=== PATIENT | male | born 1955 | race Caucasian/White ===

== ENCOUNTER 2021-01-17 18:31 | Outpatient (CLI) | payer OTHER | END 2021-01-17 18:32 | disposition home or self-care (01) | LOC: COV 18:31 | PROVIDERS: ATTEND Surgery | DX: Z01.812 Encounter for preprocedural laboratory examination (principal); K92.1 Melena; R11.0 Nausea; Z87.820 Personal history of traumatic brain injury; Z20.822 Contact with and (suspected) exposure to COVID-19 ==

== ENCOUNTER 2021-01-21 12:07 | Day surgery (SDC) | payer OTHER ==
[2021-01-21] MEDS ORDERED: LACTATED RINGERS 1,000 ML IV ONE ×2 (12:34→16:41)
[2021-01-21] MEDS ORDERED: LIDO GARGLE 30 ML BOTTLE ONE (13:14)
[2021-01-21] MEDS ORDERED: LIDOCAINE-MPF 2% 5 ML VIAL ONE (13:17)
[2021-01-21] MEDS ORDERED: PROPOFOL 200 MG/20 ML VIAL IVP ONE (13:17)
--- NOTE | 2021-01-21 13:21 | ANESTHESIA ---
Pre-Anesthesia VS, & Labs - Diagnosis hematochezia, hx TBI, nausea - Procedure EGD, Colonoscopy Vital Signs: Temp Pulse Resp BP Pulse Ox 36.1 C L 54 L 14 120/78 96 01/21/21 12:25 01/21/21 12:25 01/21/21 12:25 01/21/21 12:25 01/21/21 12:25 Height: 5 ft 11 in Weight (kg): 133 kg Body Mass Index: 40.8 BMI Classification: Morbidly Obese - NPO >8 hours - Lab Results Lab results reviewed: Yes Home Medications and Allergies Home Medications: Ambulatory Orders Acetaminophen [Tylenol] 650 mg PO Q6H PRN 01/15/21 Aspirin [Aspirin EC] 81 mg PO DAILY 01/15/21 Atenolol [Tenormin] 50 mg PO DAILY 01/15/21 Atorvastatin [Lipitor] 20 mg PO DAILY 01/15/21 Chlorthalidone 25 mg PO DAILY 01/15/21 Cholecalciferol [Vitamin D3] 50 mcg PO DAILY 01/15/21 Docusate Sodium [Dss] 250 mg PO DAILY PRN 01/15/21 Famotidine [Pepcid] 20 mg PO BID 01/15/21 Fluticasone [Flonase] 1 sprays ANA BID 01/15/21 Gabapentin [Neurontin] 600 mg PO BID 01/15/21 Glucos Sul 2Kcl/MSM/Chond/C/Mn [Glucosamine Chondroitin Cap] 2 each PO DAILY 01/15/21 Magnesium Oxide [Magnesium] 400 mg PO DAILY 01/15/21 Meloxicam [Mobic] 15 mg PO DAILY 01/15/21 Piru-3/Dha/Epa/Fish Oil [Fish Oil 1,000 mg Softgel] 1 each PO DAILY 01/15/21 Potassium Chloride [Klor-Con 10] 10 meq PO DAILY 01/15/21 Psyllium [Metamucil] 1 each PO DAILY 01/15/21 Simethicone [Mylicon] 80 mg PO BID PRN 01/15/21 Zinc Gluconate [Zinc] 50 mg PO DAILY 01/15/21 methocarbamoL [Methocarbamol] 1 - 2 tab PO QID PRN 01/15/21 Acetaminophen [Tylenol] 650 mg PO Q6H PRN 01/15/21 Aspirin [Aspirin EC] 81 mg PO DAILY 01/15/21 Atenolol [Tenormin] 50 mg PO DAILY 01/15/21 Atorvastatin [Lipitor] 20 mg PO DAILY 01/15/21 Chlorthalidone 25 mg PO DAILY 01/15/21 Cholecalciferol [Vitamin D3] 50 mcg PO DAILY 01/15/21 Docusate Sodium [Dss] 250 mg PO DAILY PRN 01/15/21 Famotidine [Pepcid] 20 mg PO BID 01/15/21 Fluticasone [Flonase] 1 sprays ANA BID 01/15/21 Gabapentin [Neurontin] 600 mg PO BID 01/15/21 Glucos Sul 2Kcl/MSM/Chond/C/Mn [Glucosamine Chondroitin Cap] 2 each PO DAILY 0 01/15/21 Magnesium Oxide [Magnesium] 400 mg PO DAILY 01/15/21 Meloxicam [Mobic] 15 mg PO DAILY 01/15/21 Piru-3/Dha/Epa/Fish Oil [Fish Oil 1,000 mg Softgel] 1 each PO DAILY 01/15/21 Potassium Chloride [Klor-Con 10] 10 meq PO DAILY 01/15/21 Psyllium [Metamucil] 1 each PO DAILY 01/15/21 Simethicone [Mylicon] 80 mg PO BID PRN 01/15/21 Zinc Gluconate [Zinc] 50 mg PO DAILY 01/15/21 methocarbamoL [Methocarbamol] 1 - 2 tab PO QID PRN 01/15/21 Allergies/Adverse Reactions: Allergies Allergy/AdvReac Type Severity Reaction Status Date / Time codeine AdvReac Nausea Verified 01/21/21 12:57 morphine AdvReac Nausea Verified 01/21/21 12:57 Anes History & Medical History - Anesthetic History Anesthesia Complications: reports: No previous complications Family history of Anesthesia Complications: Denies Family history of Malignant Hyperthermia: Denies - Medical History Cardiovascular: reports: Hypertension, High cholesterol, Coronary artery disease Pulmonary: reports: Sleep apnea, CPAP use Gastrointestinal: reports: GERD, Colon polyps, Other (difficulty swallowing) Urinary: reports: Frequency Neuro: reports: Head injury Musculoskeletal: reports: Osteoarthritis, Chronic back pain, Other Endocrine/Autoimmune: reports: None Skin: reports: Eczema, Psoriasis, Rosacea Psychosocial: reports: Depression, Anxiety, Other (HX PTSD) History of Cancer?: No - Surgical History General: reports: Colonoscopy, EGD Orthopedic: reports: Other Exam General: Alert, Oriented x3, Cooperative Dental: WNL Mouth Openin Fingerbreadth Neck Mobility: Normal Mallampati classification: III Thyromental Distance: 4-6 cm Respiratory: Lungs clear, Normal breath sounds, No respiratory distress Cardiovascular: Regular rate Neurological: Normal speech Mental/Cognitive Status: Alert/Oriented X3, Normal for patient Cognitive Status: Within normal limits Plan Anesthesia Type: Total IV Consent for Procedure(s) Verified and Reviewed: Yes Code Status: Attempt Resuscitation ASA classification: 3-Severe systemic disease Is this case an emergency?: No
[2021-01-21] MEDS ORDERED: PROPOFOL 500 MG/50 ML 500 MG/50 ML VIAL ONE (13:42)
[2021-01-21] MEDS ORDERED: GLYCOPYRROLATE 1 MG/5 ML VIAL ONE (13:45)
[2021-01-21] MEDS ORDERED: KETAMINE 500 MG/10 ML VIAL ONE (13:50)
[2021-01-21] MEDS ORDERED: MIDAZOLAM 2 MG/2 ML VIAL ONE (13:52)
--- NOTE | 2021-01-21 16:36 | ANESTHESIA POST OP EVALUATION ---
Anesthesia Post Eval - Post Anesthesia Eval Vitals: Last Vital Signs Temp 36.1 C L 01/21/21 12:25 Pulse 54 L 01/21/21 12:25 Resp 14 01/21/21 12:25 BP 120/78 01/21/21 12:25 Pulse Ox 96 01/21/21 12:25 CV Function Including HR & BP: positive: Stable Pain Control: positive: Satisfactory Nausea & Vomiting: positive: Negative Mental Status: positive: Baseline Respiratory Status: Airway Patent Hydration Status: Satisfactory Anesthesia Complications: positive: None
[2021-01-21 17:18] VITALS: BP 134/67
== END 2021-01-21 12:08 | disposition home or self-care (01) ==
LOC: SDS 12:07
PROVIDERS: ATTEND Surgery
PROC: 0DBN8ZZ Excision of Sigmoid Colon, Via Natural or Artificial Opening Endoscopic (ICD-10-PCS; principal; 2021-01-21 14:30)
DX: K29.70 Gastritis, unspecified, without bleeding (principal); K21.9 Gastro-esophageal reflux disease without esophagitis; K44.9 Diaphragmatic hernia without obstruction or gangrene; D12.5 Benign neoplasm of sigmoid colon; K57.30 Diverticulosis of large intestine without perforation or abscess without bleeding; K64.8 Other hemorrhoids; I10 Essential (primary) hypertension; E78.00 Pure hypercholesterolemia, unspecified; I25.10 Atherosclerotic heart disease of native coronary artery without angina pectoris; G47.30 Sleep apnea, unspecified; F32.9 Major depressive disorder, single episode, unspecified; F41.9 Anxiety disorder, unspecified; F43.10 Post-traumatic stress disorder, unspecified; G89.29 Other chronic pain; M54.9 Dorsalgia, unspecified; R35.0 Frequency of micturition; L40.9 Psoriasis, unspecified; E66.01 Morbid (severe) obesity due to excess calories; Z68.41 Body mass index [BMI] 40.0-44.9, adult; Z79.82 Long term (current) use of aspirin; Z79.899 Other long term (current) drug therapy; Z87.820 Personal history of traumatic brain injury
CPT/HCPCS: 43239; 45385; A9270; J7120

== ENCOUNTER 2021-03-06 12:13 | Outpatient (CLI) | payer OTHER ==
[2021-03-06] MEDS ORDERED: IOPAMIDOL-300 100 ML VIAL ONE (12:36)
[2021-03-06] MEDS ORDERED: IOPAMIDOL-300 50 ML VIAL ONE (12:36)
[2021-03-06] MEDS ORDERED: IOPAMIDOL-300 100 ML VIAL IVP ONE (14:07)
[2021-03-06] MEDS ORDERED: IOPAMIDOL-300 50 ML VIAL PO ONE (14:08)
--- NOTE | 2021-03-06 15:08 | CT Report ---
PROCEDURE: Abdomen/Pelvis W INDICATIONS: ABD PAIN, RLQ CONTRAST: IV CONTRAST: Isovue 300 ml: 100 PO CONTRAST: Isovue 300 ml50 TECHNIQUE: After the administration of oral and intravenous contrast, 5 mm thick sections acquired from the diap hragms to the symphysis. 5 mm thick coronal and sagittal reformats were acquired. For radiation dos e reduction, the following was used: automated exposure control, adjustment of mA and/or kV accordin g to patient size. COMPARISON: None. FINDINGS: Image quality: Excellent. ABDOMEN: Lung bases: Lung bases are clear. Heart size is normal. Solid organs: Liver and spleen are normal in size and enhancement. Diffuse hepatic steatosis. Gallb ladder is unremarkable. Biliary system is non dilated. Pancreas enhances normally. No adrenal nodu les. Kidneys demonstrate normal size and enhancement, without hydronephrosis. 7.3 cm right middle p ole renal cyst. Peritoneum and bowel: Bowel loops demonstrate normal wall thickness and caliber. No free fluid or a ir. Normal appendix. Nodes and vessels: No retroperitoneal or mesenteric adenopathy by size criteria. Aorta and inferior vena cava are normal in size. Miscellaneous: No ventral hernias. PELVIS: Genitourinary: Bladder wall thickness is normal. Miscellaneous: No inguinal hernias or adenopathy. Bones: No suspicious bony lesions. No vertebral body compression fractures. IMPRESSION: 1. Diffuse hepatic steatosis. 2. 7.3 cm right renal cyst. 3. No evidence of acute abdominal process. Reviewed by: Erik Frazier MD on 03/06/2021 3:07 PM PDT Approved by: Erik Frazier MD on 03/06/2021 3:07 PM PDT Station ID: [id number]
== END 2021-03-06 12:14 | disposition home or self-care (01) ==
LOC: LAB 12:13
PROVIDERS: ATTEND Surgery
DX: Q61.9 Cystic kidney disease, unspecified (principal); K76.0 Fatty (change of) liver, not elsewhere classified; Q61.01 Congenital single renal cyst
CPT/HCPCS: 36415; 74177; 82565; Q9967

== ENCOUNTER 2021-04-02 12:28 | Observation (INO) | payer OTHER ==
--- OUTSIDE RECORDS SUMMARY | 2021-04-02 12:49 | EXTERNAL MEDICAL SUMMARY RPT | Continuity of Care Document ---
:1955 Demographics Phone Unavailable Preferred Language Unknown Marital Status Unknown Holiness Affiliation Unknown Race Unknown Ethnic Group Unknown Author Organization [facility] Address [address] [phone] Phone Allergies Encounters Medications Problems Results
--- NOTE | 2021-04-02 13:09 | XRAY Report ---
PROCEDURE: Chest 1 View X-Ray INDICATIONS: Chest Pain TECHNIQUE: One view of the chest was acquired. COMPARISON: None FINDINGS: Surgical changes and devices: None. Lungs and pleura: No pleural effusions or pneumothorax. Lungs are clear. Mediastinum: Mediastinal contours appear normal. Heart size is normal. Bones and chest wall: No suspicious bony lesions. Overlying soft tissues appear unremarkable. IMPRESSION: No acute cardiopulmonary findings Reviewed by: Clifford Shaw MD on 04/02/2021 12:07 PM [facility] Approved by: Clifford Shaw MD on 04/02/2021 12:07 PM [facility] Station ID: [id number]
[2021-04-02 13:18] LABS: BASOPHILS % (AUTO) 0.6 %; EOSINOPHILS # (AUTO) 0.1 10^3/uL (0.0-0.7); EOSINOPHILS % (AUTO) 1.7 %; HCT - HEMATOCRIT 43.1 % (42.0-52.0); HGB - HEMOGLOBIN 14.8 g/dL (14.0-18.0); LYMPHOCYTES # (AUTO) 1.7 10^3/uL (1.5-3.5); LYMPHOCYTES % (AUTO) 23.8 %; MEAN CORPUSCULAR HEMOGLOBIN 30.3 pg (27.0-31.0); MEAN CORPUSCULAR HGB CONC 34.3 g/dL (32.0-36.0); MEAN CORPUSCULAR VOLUME 88.3 fL (80.0-94.0); MEAN PLATELET VOLUME 10.1 fL (7.4-11.4); MONOCYTES # (AUTO) 0.8 10^3/uL (0.0-1.0); MONOCYTES % (AUTO) 10.3 %; NEUTROPHILS # (AUTO) 4.6 10^3/uL (1.5-6.6); NEUTROPHILS % (AUTO) 63.3 %; PLT - PLATELET COUNT 255 10^3/uL (130-450); RED BLOOD COUNT 4.88 10^6/uL (4.70-6.10); RED CELL DISTRIBUTION WIDTH 12.6 % (12.0-15.0); WHITE BLOOD COUNT 7.3 x10^3/uL (4.8-10.8)
--- NOTE | 2021-04-02 13:27 | ED Physician Documentation ---
History of Present Illness - Stated complaint Stated Complaint: CHEST PAIN - Chief complaint Chief Complaint: Cardiac - Additonal information Additional information: 65-year-old male presents the emergency department for evaluation of left-sided chest discomfort as well as dysuria. He does report a history of coronary artery disease. He does have a history of hypertension. Non-smoker. He reports that about 2 to 3 weeks ago he was doing yard work in the garden. While doing the yard work he began to have left arm discomfort but he pushed through it. Since that event he has been increasingly fatigued and had nausea and intermittent chest discomfort. It is not always exertional sometimes it does occur at rest. He does attend physical therapy for chronic neck and back pain and reports increasing difficulty recently completing physical therapy. He also reports intermittent hematuria and dysuria for the last few weeks. No history of nephrolithiasis. This gentleman did recently have a CAT scan done by Dr. Song for concerns of lower abdominal pain and hematochezia. Review of Systems Constitutional: denies: Fever, Chills Eyes: reports: Reviewed and negative Ears: reports: Reviewed and negative Nose: reports: Reviewed and negative Throat: reports: Reviewed and negative Cardiac: reports: Chest pain / pressure Respiratory: reports: Hemoptysis. denies: Dyspnea, Cough GI: reports: Abdominal Pain, Nausea, Vomiting, Bloody / black stool : reports: Dysuria, Hematuria. denies: Frequency, Hesitancy Skin: reports: Reviewed and negative Musculoskeletal: reports: Neck pain, Back pain (Chronic neck and back pain.) PD PAST MEDICAL HISTORY - Past Medical History Past Medical History: Yes Cardiovascular: Hypertension, High cholesterol, Coronary artery disease Respiratory: Sleep apnea, CPAP use Neuro: Head injury Endocrine/Autoimmune: None GI: GERD, Colon polyps, Other : Frequency HEENT: Chronic vision loss, Chronic sinusitis, Chronic hearing loss Psych: Depression, Anxiety, Panic attacks, Post traumatic stress disorder, Other Musculoskeletal: Osteoarthritis, Chronic back pain, Other Derm: Eczema, Psoriasis, Rosacea - Past Surgical History Past Surgical History: Yes General: Colonoscopy, EGD Ortho: Other - Present Medications Home Medications: Ambulatory Orders Medication Instructions Recorded Confirmed Acetaminophen [Tylenol] 650 mg PO Q6H PRN 01/15/21 04/02/21 Aspirin [Aspirin EC] 81 mg PO DAILY 01/15/21 04/02/21 Atenolol [Tenormin] 50 mg PO DAILY 01/15/21 04/02/21 Atorvastatin [Lipitor] 20 mg PO DAILY 01/15/21 04/02/21 Chlorthalidone 25 mg PO DAILY 01/15/21 04/02/21 Cholecalciferol [Vitamin D3] 50 mcg PO DAILY 01/15/21 04/02/21 Docusate Sodium [Dss] 250 mg PO DAILY PRN 01/15/21 04/02/21 Famotidine [Pepcid] 20 mg PO BID 01/15/21 04/02/21 Fluticasone [Flonase] 1 sprays NAA BID 01/15/21 04/02/21 Gabapentin [Neurontin] 600 mg PO BID 01/15/21 04/02/21 Glucos Sul 2Kcl/MSM/Chond/C/Mn 2 each PO DAILY 01/15/21 04/02/21 [Glucosamine Chondroitin Cap] Magnesium Oxide [Magnesium] 400 mg PO DAILY 01/15/21 04/02/21 Meloxicam [Mobic] 15 mg PO DAILY 01/15/21 04/02/21 Plaza-3/Dha/Epa/Fish Oil [Fish Oil 1 each PO DAILY 01/15/21 04/02/21 1,000 mg Softgel] Psyllium [Metamucil] 1 each PO DAILY 01/15/21 04/02/21 Simethicone [Mylicon] 80 mg PO BID PRN 01/15/21 04/02/21 Zinc Gluconate [Zinc] 50 mg PO DAILY 01/15/21 04/02/21 methocarbamoL [Methocarbamol] 1 - 2 tab PO QID PRN 01/15/21 04/02/21 - Allergies Allergies/Adverse Reactions: Allergies Allergy/AdvReac Type Severity Reaction Status Date / Time codeine AdvReac Nausea Verified 04/02/21 12:48 morphine AdvReac Nausea Verified 04/02/21 12:48 - Social History Does the pt smoke?: No Smoking Status: Never smoker Does the pt drink ETOH?: Yes ETOH Use: Liquor Does the pt have substance abuse?: Yes Substance Use and Type: Marijuana - Immunizations Immunizations are current?: Yes - POLST Patient has POLST: No PD ED PE EXPANDED - General General: Alert, No acute distress, Other (Morbidly obese.) - Cardiac Cardiac: Regular Rate, Radial strong equal, Pedal strong equal, Cap refill < 2 sec. No: Murmur Present - Respiratory Respiratory: Clear to ausultation alba. No: Distress, Labored - Abdomen Abdomen: Normal Bowel sounds. No: Tender to palpation - Extremities Extremities: Normal. No: Deformity, Tenderness - Neuro Neuro: Alert and Oriented X 3, CNII-XII intact - GCS Eye Opening: Spontaneous Motor: Obeys Commands Verbal: Oriented Total: 15 Results - Vitals Vitals: Vital Signs - 24 hr 04/02/21 04/02/21 04/02/21 12:45 12:50 13:29 Temperature 36.8 C Heart Rate 76 62 62 Respiratory 14 19 17 Rate Blood Pressure 150/76 H 150/76 H O2 Saturation 94 95 96 04/02/21 04/02/21 13:33 14:47 Temperature 37.1 C Heart Rate 54 L Respiratory 16 Rate Blood Pressure 139/88 H 118/67 O2 Saturation 96 Oxygen O2 Source Room air - EKG (time done) 1235 Rate: Rate (enter#) (59) Rhythm: NSR Chandler: Normal Intervals: Normal WI. No: Prolonged QT QRS: Normal Ischemia: Q waves (V2-V5) Compare to prior EKG: Old EKG unavailable Computer interpretation: Agree with computer - Labs Labs: Laboratory Tests 04/02/21 04/02/21 04/02/21 13:12 13:12 13:12 WBC 7.3 RBC 4.88 Hgb 14.8 Hct 43.1 MCV 88.3 MCH 30.3 MCHC 34.3 RDW 12.6 Plt Count 255 MPV 10.1 Neut # (Auto) 4.6 Lymph # (Auto) 1.7 Ell[place] # (Auto) 0.8 Eos # (Auto) 0.1 Baso # (Auto) 0.0 Absolute Nucleated RBC 0.00 Nucleated RBC % 0.0 Sodium 135 Potassium 3.3 L Chloride 98 L Carbon Dioxide 27 Anion Gap 10.0 BUN 26 H Creatinine 0.8 Estimated GFR (MDRD) 98 Glucose 129 H Calcium 9.4 Total Bilirubin 0.9 AST 24 ALT 33 Alkaline Phosphatase 53 Troponin I High Sens 4.0 B-Natriuretic Peptide Total Protein 7.7 Albumin 4.4 Globulin 3.3 Albumin/Globulin Ratio 1.3 Lipase 31 Urine Color Urine Clarity Urine pH Ur Specific [place] Urine Protein Urine Glucose (UA) Urine Ketones Urine Occult Blood Urine Nitrite Urine Bilirubin Urine Urobilinogen Ur Leukocyte Esterase Ur Microscopic Review Urine Culture Comments 04/02/21 04/02/21 13:12 13:21 WBC RBC Hgb Hct MCV MCH MCHC RDW Plt Count MPV Neut # (Auto) Lymph # (Auto) [place] # (Auto) Eos # (Auto) Baso # (Auto) Absolute Nucleated RBC Nucleated RBC % Sodium Potassium Chloride Carbon Dioxide Anion Gap BUN Creatinine Estimated GFR (MDRD) Glucose Calcium Total Bilirubin AST ALT Alkaline Phosphatase Troponin I High Sens B-Natriuretic Peptide 11 Total Protein Albumin Globulin Albumin/Globulin Ratio Lipase Urine Color YELLOW Urine Clarity CLEAR Urine pH 6.5 Ur Specific [place] 1.020 Urine Protein NEGATIVE Urine Glucose (UA) NEGATIVE Urine Ketones NEGATIVE Urine Occult Blood NEGATIVE Urine Nitrite NEGATIVE Urine Bilirubin NEGATIVE Urine Urobilinogen 0.2 (NORMAL) Ur Leukocyte Esterase NEGATIVE Ur Microscopic Review NOT INDICATED Urine Culture Comments NOT INDICATED PD MEDICAL DECISION MAKING - ED course Complexity details: reviewed results, re-evaluated patient, d/w patient ED course: 65-year-old male who carries a history of hypertension morbid obesity as well as known coronary artery disease presents the emergency department with 2 to 3 weeks of chest discomfort. He first noticed it 2 weeks ago after working outside in his yard and had a lot of left arm pain since then he reports significant exercise intolerance as well as chest discomfort that is intermittent though not necessarily exertional or improved with rest. Screening labs today show a negative troponin and BNP. Chest x-ray without acute focal abnormality. 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 However given this gentleman's risk factors his Heart score is 4 putting him at moderate risk for major adverse cardiac event. I have presented him for admission to our hospitalist Dr. Maradiaga is graciously agreed to admit him on an observation status pending echo and stress test. Patient was made aware and agrees to coming into the hospital for further evaluation and testing. We did call the [place] hospital system and they indicated that they had no beds open for transfer. Departure - Departure Disposition: ED Place in Observation Clinical Impression: Chest pain Qualifiers: Chest pain type: unspecified Qualified Code(s): R07.9 - Chest pain, unspecified
[2021-04-02 13:37] LABS: ALBUMIN 4.4 g/dL (3.2-5.5); ALBUMIN/GLOBULIN RATIO 1.3 (1.0-2.2); BILIRUBIN,TOTAL 0.9 mg/dL (0.2-1.0); CALCIUM 9.4 mg/dL (8.5-10.3); CREATININE 0.8 mg/dL (0.6-1.2); POTASSIUM 3.3 mmol/L (3.5-5.0); TOTAL PROTEIN 7.7 g/dL (6.7-8.2)
[2021-04-02 13:42] LABS: BILIRUBIN,URINE NEGATIVE (NEGATIVE); GLUCOSE, URINE (UA) NEGATIVE (NEGATIVE); KETONES,URINE (UA) NEGATIVE (NEGATIVE); LEUKOCYTE ESTERASE, URINE NEGATIVE (NEGATIVE); NITRITE,URINE NEGATIVE (NEGATIVE); OCCULT BLOOD,URINE NEGATIVE (NEGATIVE); PH,URINE 6.5 PH (5.0-7.5); PROTEIN,URINE NEGATIVE (NEGATIVE); UROBILINOGEN,URINE 0.2 (NORMAL) E.U./dL (NORMAL)
[2021-04-02 13:43] LABS: CLARITY,URINE CLEAR (CLEAR)
[2021-04-02] MEDS ORDERED: SODIUM CHLORIDE FLUSH 0.9% 10 ML SYRINGE IVP PRN (14:54)
[2021-04-02] MEDS ORDERED: ONDANSETRON 4 MG/2 ML VIAL IVP PRN (14:54)
[2021-04-02] MEDS ORDERED: PROCHLORPERAZINE 10 MG/2 ML VIAL IVP PRN (14:54)
[2021-04-02] MEDS ORDERED: ACETAMINOPHEN 325 MG TABLET PO PRN (14:54)
[2021-04-02] MEDS ORDERED: oxyCODONE 5 MG TABLET PO PRN (14:54)
[2021-04-02] MEDS ORDERED: SODIUM CHLORIDE 0.9% 1,000 ML IV SCH (15:00)
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
--- OUTSIDE RECORDS SUMMARY | 2021-04-02 15:29 | EXTERNAL MEDICAL SUMMARY RPT | Continuity of Care Document ---
:1955 Demographics Phone Unavailable Preferred Language Unknown Marital Status Unknown Mandaeism Affiliation Unknown Race Unknown Ethnic Group Unknown Author Organization [facility] Address [address] [phone] Phone Allergies Encounters Medications Problems Results
[2021-04-02 16:02] VITALS: BP 132/70
--- NOTE | 2021-04-02 16:34 | PHARMACY PROGRESS NOTE ---
- Best Possible Medication History Admit Date and Time: 04/02/21 1454 Processed by: Nursing Medication History completed: Yes As the person ultimately responsible for medication therapy, providers are able to order a medication from an existing home medication list in [facility] via the "Reconcile Routine" prior to Confirmation of that medication by applications support analyst. Such practice is discouraged except when the physician, in their clinical judgment, deems that a medical need exists for a medication without regard to previous use.
[2021-04-02 16:45] LABS: B. PARAPERTUSSIS- RESP PCR PAN NOT DETECTED; B. PERTUSSIS- RESP PCR PANEL NOT DETECTED; C. PNEUMONIAE- RESP PCR PANEL NOT DETECTED; CORONAVIRUS 229E-RESP PCR NOT DETECTED; CORONAVIRUS HKU1-RESP PCR NOT DETECTED; CORONAVIRUS NL63-RESP PCR NOT DETECTED; CORONAVIRUS OC43-RESP PCR NOT DETECTED; HUMAN METAPNEUMOVIRUS NOT DETECTED; INFLUENZA A- RESP PCR PANEL NOT DETECTED; INFLUENZA B - RESP PCR PANEL NOT DETECTED; M. PNEUMONIAE- RESP PCR PANEL NOT DETECTED; PARAINFLUENZA VIRUS 1 NOT DETECTED; PARAINFLUENZA VIRUS 2 NOT DETECTED; PARAINFLUENZA VIRUS 3 NOT DETECTED; PARAINFLUENZA VIRUS 4 NOT DETECTED; RHINOVIRUS/ENTEROVIRUS NOT DETECTED; RSV- RESP PCR PANEL NOT DETECTED; SARS-CoV-2 -RESP PCR PANEL NOT DETECTED
[2021-04-02] MEDS ORDERED: AMINOPHYLLINE 500 MG/20 ML VIAL ONE (17:00)
[2021-04-02] MEDS ORDERED: SODIUM CHLORIDE FLUSH 0.9% 10 ML SYRINGE IVP SCH (17:00)
[2021-04-02] MEDS ORDERED: REGADENOSON 0.4 MG/5 ML SYRINGE IVP ONE ×2 (17:00→20:00)
[2021-04-02] MEDS ORDERED: POTASSIUM CHLORIDE 20 MEQ TABLET PO ONE (17:13)
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
--- NOTE | 2021-04-02 20:22 | Nuclear Medicine Report ---
PROCEDURE: Rest and exercise myocardial perfusion SPECT with gated imaging and ejection fraction INDICATIONS: chest pain RADIOPHARMACEUTICAL: 12.4 mCi Tc-99m Myoview IV at rest and 39.7 mCi Tc-99m Myoview IV at peak exerc ise. [id number] was performed. TECHNIQUE: Radiopharmaceutical was injected at peak stress test, and also at rest. SPECT images wer e obtained. SPECT myocardial perfusion images were displayed in short axis, horizontal long axis, an d vertical long axis views. Gated images were reviewed using [employer] software. COMPARISON: None available. CARDIAC STRESS: A pharmacologic stress test was performed with 0.4 mg Lexiscan. Hemodynamic data: There is normal blood pressure and heart rate response to exercise stress. Symptoms: Patient denied chest pain during exercise. EKG: No diagnostic EKG changes of ischemia; no ectopy. FINDINGS: Raw data: There is good myocardial labeling by radiotracer. No significant motion artifacts. Lung- to-heart ratio is (normal is less than 0.46 for tetrafosmin tracer). Left ventricle function: Gated images demonstrate normal left ventricle wall thickening. No segment al wall motion abnormality. No transient ischemic dilation; TID is 1.0 (normal less than 1.30). The left ventricle resting end-diastolic volume is 103 mL. Left ventricle stress ejection fraction is 7 7%; normal values are above 45%. Myocardial perfusion: There is normal distribution of activity in the left and right ventricular olivia cardium. No fixed or reversible perfusion defects. IMPRESSION: 1. No stress perfusion defects to indicate ischemia. 2. No EKG changes of ischemia. 3. Ejection fraction 77%. Message and callback number were left for the night hospitalist, who was not immediately available fo r consultation, on 04/02/2021 at 8:20 PM. PQRS ATTESTATIONS: Measure 322 - Is this imaging test primarily performed on a low-risk surgery patient for preoperative evaluation within 30 days preceding their low-risk non-cardiac surgery? Low-risk surgery is defined as cardiac or myocardial infarction less than 1%, including (but not limited to) endoscopic pr ocedures, superficial procedures, cataract surgery, and excisional breast surgery: Answer: No Measure 323 - Is this imaging test performed primarily for the monitoring of an asymptomatic patient who had percutaneous coronary intervention on the visit date or within 2 years of the visit date? An swer: No Measure 324 - Is this imaging test performed primarily for the initial detection and risk assessment on an asymptomatic, low coronary heart disease patient? Low CHD risk definition = clinicians should consider the maximum number of available patient factors used to estimate risk based on Homer (A TP III criteria), typically age, gender, diabetes, smoking status, and use of blood pressure medicati on, and integrate age appropriate estimates for missing elements, such as LDL or standard blood press ure. Answer: No Reviewed by: Allie Tran MD on 04/02/2021 8:20 PM PDT Approved by: Allie Tran MD on 04/02/2021 8:20 PM PDT Station ID: [id number]
--- NOTE | 2021-04-02 20:56 | Discharge Plan ---
Discharge Plan Problem Reviewed?: Yes Disposition: Home, Self Care Condition: Stable Diet: Regular Activity Restrictions: Activity as Tolerated Health Concerns: You were seen in the hospital because of chest discomfort and fatigue. You underwent a stress test which did not suggest any evidence of heart disease. At this point in time, there is low suspicion for your symptoms being due to your heart. It is recommended that you follow-up with your primary care provider if you continue to have ongoing fatigue and decreased physical activity. Plan of Treatment: Your stress test came back unremarkable with low suspicion for heart disease. You may consider having an echocardiogram obtained by your primary care provider. Assessment: Patient expressed understanding of the treatment plan. Additional Instructions or Follow Up instructions: Please follow up with your primary care provider in one week. No Smoking: If you smoke, Please STOP! Call for help.
--- NOTE | 2021-04-02 21:01 | DISCHARGE SUMMARY ---
Discharge Summary Admit Date: 04/02/21 Discharge Date: 04/02/21 Discharging Provider: Conrad Germain Primary Care Provider: [facility] Code Status: Attempt Resuscitation Condition at Discharge: Stable Discharge Disposition: 01 Home, Self Care - DIAGNOSES Admission Diagnoses: Chest pain Hypertension Hematuria Hypokalemia Discharge Diagnoses with Status of Each Condition: Chest pain - resolved. Hypertension - stable. Hematuria - ongoing. Hypokalemia - stable. - HPI History of Present Illness: H&P per Dr. Maradiaga: A 65-year-old white male whose risk factors for cardiac disease include obesity, male sex, hypertension, hyperlipidemia. Although he has "a high glucose, he has never been told he has diabetes. He says that his sugars never high enough to be formally diagnosed. He is a non-smoker, and family history is positive for quadruple bypass surgery in his father when dad was in his 60s. He has chronic daily chest pain. It is substernal and radiates a little to the right side of his chest. Made worse with activity. It has been present ever since he mustered out of the [employer]. He was 24 then. He is 100% service-connected. He is followed at the [facility] in [place] by [facility] [place] Something changed however. He has new chest discomfort with exertion for the last 3 weeks. It started when he was working out in the yard 3 weeks ago and at that time it was left-sided arm pain. He was working on his mother's driveway. He worked through the pain and kept on working and has been exhausted since that time. Ever since he did that he has a new chest pressure with activity. It is subxiphoid, feels heavy, and goes more to the left chest on the right chest. He says it is hard to describe but it is different from the chronic daily chest pain he gets. He is starting to do some physical therapy and when he does physical therapy he gets chest pressure. Nausea with this. But no palpitations, diaphoresis, edema, orthopnea. But he thinks he gave himself "a small heart attack" and he wants to make sure he is not going to have another one.He does have PTSD, anxiety Years ago he had a stress test at the [facility]. He thinks it was negative but he also ended up with possibly a coronary angiogram where he was told that his arteries were "normal for his age. [facility]. As such the patient is now placed in observation for rule out TN, and evaluation of the chest pain. - CONSULTS | PROCEDURES Procedures: He underwent a Lexiscan pharmacologic stress test. His baseline EKG had normal sinus rhythm, poor R wave progression, no acute ST segment changes. With maximal injection of stimulant, nondiagnostic ST depression in lateral leads of less than 0.04 mV. During stress he had nausea, slight diaphoresis, and a mild headache. These resolved in 2 minutes of rest. The overall quality the study was fair. EKG was nondiagnostic for ischemia. Myocardial perfusion imaging showed no stress perfusion defects to indicate ischemia. No EKG changes of ischemia. Ejection fraction 77%. - HOSPITAL COURSE Hospital Course: He was placed in observation for chest pain rule out. His troponins were negative x2. He underwent a Lexiscan cardiac stress test which did not suggest ischemia. Myocardial perfusion imaging did not reveal any defects to suggest ischemia. His ejection fraction was 77%. He was discharged home in a stable condition and asked to follow-up with his primary care provider. - ALLERGIES Allergies/Adverse Reactions: Allergies Allergy/AdvReac Type Severity Reaction Status Date / Time codeine AdvReac Nausea Verified 04/02/21 12:48 morphine AdvReac Nausea Verified 04/02/21 12:48 - MEDICATIONS Home Medications: Ambulatory Orders Medication Instructions Recorded Confirmed Acetaminophen [Tylenol] 650 mg PO Q6H PRN 01/15/21 04/02/21 Aspirin [Aspirin EC] 81 mg PO DAILY 01/15/21 04/02/21 Atenolol [Tenormin] 50 mg PO DAILY 01/15/21 04/02/21 Atorvastatin [Lipitor] 20 mg PO DAILY 01/15/21 04/02/21 Chlorthalidone 25 mg PO DAILY 01/15/21 04/02/21 Cholecalciferol [Vitamin D3] 50 mcg PO DAILY 01/15/21 04/02/21 Docusate Sodium [Dss] 250 mg PO DAILY PRN 01/15/21 04/02/21 Famotidine [Pepcid] 20 mg PO BID 01/15/21 04/02/21 Fluticasone [Flonase] 1 sprays ANA BID 01/15/21 04/02/21 Gabapentin [Neurontin] 600 mg PO BID 01/15/21 04/02/21 Glucos Sul 2Kcl/MSM/Chond/C/Mn 2 each PO DAILY 01/15/21 04/02/21 [Glucosamine Chondroitin Cap] Magnesium Oxide [Magnesium] 400 mg PO DAILY 01/15/21 04/02/21 Meloxicam [Mobic] 15 mg PO DAILY 01/15/21 04/02/21 [place]-3/Dha/Epa/Fish Oil [Fish Oil 1 each PO DAILY 01/15/21 04/02/21 1,000 mg Softgel] Psyllium [Metamucil] 1 each PO DAILY 01/15/21 04/02/21 Simethicone [Mylicon] 80 mg PO BID PRN 01/15/21 04/02/21 Zinc Gluconate [Zinc] 50 mg PO DAILY 01/15/21 04/02/21 methocarbamoL [Methocarbamol] 1 - 2 tab PO QID PRN 01/15/21 04/02/21 - PHYSICAL EXAM AT DISCHARGE General Appearance: positive: No acute distress, Alert Eyes Bilateral: positive: Normal inspection ENT: positive: ENT inspection nml Neck: positive: Nml inspection Respiratory: positive: No respiratory distress. negative: Wheezes, Rales Cardiovascular: positive: Regular rate & rhythm, No murmur. negative: Tachycardia Abdomen: positive: No distention, Tenderness (Left lower qudrant which is c hronic for him.). negative: Non-tender, No organomegaly Skin: positive: Warm, Dry Extremities: positive: Full ROM, No pedal edema Neurologic/Psychiatric: positive: Oriented x3, Motor nml. negative: Disoriented to person, Disoriented to place, Disoriented to time Physical Exam Other/Comments: Vital Signs - 24 hr 04/02/21 04/02/21 04/02/21 12:45 12:50 13:29 Temperature 36.8 C Heart Rate 76 62 62 Heart Rate [ Monitoring electrodes] Respiratory 14 19 17 Rate Blood Pressure 150/76 H 150/76 H Blood Pressure [Left Brachial artery] O2 Saturation 94 95 96 04/02/21 04/02/21 04/02/21 13:33 14:47 15:47 Temperature 37.1 C Heart Rate 54 L 55 L Heart Rate [ Monitoring electrodes] Respiratory 16 17 Rate Blood Pressure 139/88 H 118/67 130/90 H Blood Pressure [Left Brachial artery] O2 Saturation 96 96 04/02/21 04/02/21 16:00 18:54 Temperature 37.3 C 37.3 C Heart Rate 74 Heart Rate [ 54 L Monitoring electrodes] Respiratory 16 18 Rate Blood Pressure Blood Pressure 132/70 H [Left Brachial artery] O2 Saturation 95 96 Oxygen O2 Source Room air - LABS Result Diagrams: 04/02/21 13:12 04/02/21 13:12 - DIAGNOSTIC IMAGING Diagnostic Imaging Results: Final report reviewed - FOLLOW UP Follow Up: He was last follow-up with his primary care provider to discuss his chronic hematuria and his fatigue. - TIME SPENT Time Spent in Discharge (Minutes): 30
[2021-04-03] MEDS ORDERED: ENOXAPARIN 40 MG/0.4 ML SYRINGE SUBQ SCH (09:00)
== END 2021-04-02 21:22 | disposition home or self-care (01) ==
LOC: ED 12:28 → MS2 14:54
PROVIDERS: ADMIT Specialist; ATTEND Internal Medicine
DX: R07.89 Other chest pain (principal); I10 Essential (primary) hypertension; E87.6 Hypokalemia; R73.9 Hyperglycemia, unspecified; R31.9 Hematuria, unspecified; E66.01 Morbid (severe) obesity due to excess calories; Z68.41 Body mass index [BMI] 40.0-44.9, adult; F43.10 Post-traumatic stress disorder, unspecified; F41.9 Anxiety disorder, unspecified; F41.0 Panic disorder [episodic paroxysmal anxiety]; F32.9 Major depressive disorder, single episode, unspecified; F42.9 Obsessive-compulsive disorder, unspecified; I25.10 Atherosclerotic heart disease of native coronary artery without angina pectoris; G47.30 Sleep apnea, unspecified; R06.2 Wheezing; K21.9 Gastro-esophageal reflux disease without esophagitis; G89.29 Other chronic pain; M54.9 Dorsalgia, unspecified; M19.90 Unspecified osteoarthritis, unspecified site; R35.0 Frequency of micturition; H54.7 Unspecified visual loss; H91.90 Unspecified hearing loss, unspecified ear; L40.9 Psoriasis, unspecified; L30.9 Dermatitis, unspecified; L71.9 Rosacea, unspecified; Z87.820 Personal history of traumatic brain injury; Z79.82 Long term (current) use of aspirin; Z79.899 Other long term (current) drug therapy; Z82.49 Family history of ischemic heart disease and other diseases of the circulatory system; Z20.822 Contact with and (suspected) exposure to COVID-19
CPT/HCPCS: 0202U; 36415; 71045; 78452; 80053; 81003; 83690; 83880; 84484; 85025; 93005; 93017; 99284; 99285; A9270; A9500; G0378; J2785; 81001; 87086

== ENCOUNTER 2021-06-14 22:57 | Emergency (ER) | payer OTHER ==
[2021-06-14 23:29] LABS: BASOPHILS # (AUTO) 0.1 10^3/uL (0.0-0.1); BASOPHILS % (AUTO) 0.6 %; EOSINOPHILS # (AUTO) 0.1 10^3/uL (0.0-0.7); EOSINOPHILS % (AUTO) 1.5 %; HGB - HEMOGLOBIN 14.1 g/dL (14.0-18.0); LYMPHOCYTES # (AUTO) 2.2 10^3/uL (1.5-3.5); LYMPHOCYTES % (AUTO) 23.1 %; MEAN CORPUSCULAR HEMOGLOBIN 30.1 pg (27.0-31.0); MEAN CORPUSCULAR HGB CONC 33.6 g/dL (32.0-36.0); MEAN CORPUSCULAR VOLUME 89.6 fL (80.0-94.0); MEAN PLATELET VOLUME 10.2 fL (7.4-11.4); MONOCYTES # (AUTO) 0.9 10^3/uL (0.0-1.0); MONOCYTES % (AUTO) 9.5 %; NEUTROPHILS # (AUTO) 6.1 10^3/uL (1.5-6.6); NEUTROPHILS % (AUTO) 65.1 %; PLT - PLATELET COUNT 236 10^3/uL (130-450); RED BLOOD COUNT 4.69 10^6/uL (4.70-6.10); RED CELL DISTRIBUTION WIDTH 12.8 % (12.0-15.0); WHITE BLOOD COUNT 9.4 x10^3/uL (4.8-10.8)
[2021-06-14 23:41] LABS: ALBUMIN 4.4 g/dL (3.2-5.5); ALBUMIN/GLOBULIN RATIO 1.5 (1.0-2.2); BILIRUBIN,TOTAL 0.9 mg/dL (0.2-1.0); CALCIUM 9.2 mg/dL (8.5-10.3); POTASSIUM 3.3 mmol/L (3.5-5.0); TOTAL PROTEIN 7.3 g/dL (6.7-8.2)
--- NOTE | 2021-06-15 01:20 | ED Physician Documentation ---
History of Present Illness - Stated complaint Stated Complaint: CHEST PX - Chief complaint Chief Complaint: Cardiac - History obtained from History obtained from: Patient - Additonal information Additional information: 65-year-old man with past medical history of high blood pressure, anxiety, recently admitted here for cardiac workup with negative stress testing and echo, p/w palpitations intermittent over the past 3 days, a/w nausea, fatigue, intermittent mild headache originating at the base of the skull. no neck stiffness or fevers. no confusion. denies cp, soa, cough. Review of Systems Ten Systems: 10 systems reviewed and negative Constitutional: reports: Fatigue. denies: Fever, Chills Cardiac: reports: Palpitations GI: reports: Nausea PD PAST MEDICAL HISTORY - Past Medical History Cardiovascular: Hypertension, High cholesterol, Coronary artery disease Respiratory: Sleep apnea, CPAP use Neuro: Head injury, Headaches Endocrine/Autoimmune: Other GI: GERD, Colon polyps, Other : Frequency, Other HEENT: Chronic vision loss, Chronic sinusitis, Chronic hearing loss, Other Psych: Depression, Anxiety, Panic attacks, Post traumatic stress disorder, Other Musculoskeletal: Osteoarthritis, Chronic back pain, Other Derm: Eczema, Psoriasis, Rosacea - Past Surgical History Past Surgical History: Yes General: Colonoscopy, EGD Ortho: Other HEENT: Other - Present Medications Home Medications: Ambulatory Orders Medication Instructions Recorded Confirmed Acetaminophen [Tylenol] 650 mg PO Q6H PRN 01/15/21 04/02/21 Aspirin [Aspirin EC] 81 mg PO DAILY 01/15/21 06/14/21 Atenolol [Tenormin] 50 mg PO DAILY 01/15/21 06/14/21 Atorvastatin [Lipitor] 20 mg PO DAILY 01/15/21 06/14/21 Chlorthalidone 25 mg PO DAILY 01/15/21 06/14/21 Cholecalciferol [Vitamin D3] 50 mcg PO DAILY 01/15/21 06/14/21 Docusate Sodium [Dss] 250 mg PO DAILY PRN 01/15/21 04/02/21 Famotidine [Pepcid] 20 mg PO BID 01/15/21 04/02/21 Fluticasone [Flonase] 1 sprays ANA BID 01/15/21 04/02/21 Gabapentin [Neurontin] 600 mg PO BID 01/15/21 04/02/21 Glucos Sul 2Kcl/MSM/Chond/C/Mn 2 each PO DAILY 01/15/21 04/02/21 [Glucosamine Chondroitin Cap] Magnesium Oxide [Magnesium] 400 mg PO DAILY 01/15/21 04/02/21 Meloxicam [Mobic] 15 mg PO DAILY 01/15/21 04/02/21 [place]-3/Dha/Epa/Fish Oil [Fish Oil 1 each PO DAILY 01/15/21 04/02/21 1,000 mg Softgel] Psyllium [Metamucil] 1 each PO DAILY 01/15/21 06/14/21 Simethicone [Mylicon] 80 mg PO BID PRN 01/15/21 06/14/21 Zinc Gluconate [Zinc] 50 mg PO DAILY 01/15/21 06/14/21 methocarbamoL [Methocarbamol] 1 - 2 tab PO QID PRN 01/15/21 06/14/21 Capsaicin [Zostrix] 56.6 gm PO DAILY 06/14/21 06/14/21 Carboxymethylcellulose Sodium 1 drops OP DAILY 06/14/21 06/14/21 [Refresh Plus] Desonide [Desowen] 1 applic TOP DAILY 06/14/21 06/14/21 Docusate Sodium [Dss] 250 mg PO DAILY 06/14/21 06/14/21 Propranolol [Inderal] 10 mg PO BID PRN #30 tablet 06/15/21 - Allergies Allergies/Adverse Reactions: Allergies Allergy/AdvReac Type Severity Reaction Status Date / Time codeine AdvReac Nausea Verified 06/14/21 23:02 morphine AdvReac Nausea Verified 06/14/21 23:02 - Social History Does the pt smoke?: No Smoking Status: Never smoker Does the pt drink ETOH?: Yes Does the pt have substance abuse?: Yes - Immunizations Immunizations are current?: Yes - POLST Patient has POLST: No POLST Status: Full Code PD ED PE NORMAL - Vitals Vital signs reviewed: Yes - General General: Alert and oriented X 3, No acute distress, Well developed/nourished - HEENT HEENT: Atraumatic, PERRL, EOMI, Moist mucous membranes - Neck Neck: Supple, no meningeal sign - Cardiac Cardiac: RRR - Respiratory Respiratory: No respiratory distress, Clear bilaterally - Abdomen Abdomen: Non tender, Non distended - Derm Derm: Normal color, Warm and dry - Extremities Extremities: No deformity - Neuro Neuro: Alert and oriented X 3, plate keeper 2-12 intact, No motor deficit, No sensory deficit, Normal speech, Other (Normal cerebellar testing strength and gait) Results - Vitals Vitals: Vital Signs - 24 hr 06/14/21 06/14/21 06/15/21 23:03 23:32 00:07 Temperature 36.7 C 36.7 C Heart Rate 65 68 63 Respiratory 19 16 17 Rate Blood Pressure 148/74 H 115/71 124/73 O2 Saturation 97 97 100 06/15/21 00:41 Temperature Heart Rate 59 L Respiratory 15 Rate Blood Pressure 127/61 O2 Saturation 98 Oxygen O2 Source Room air - EKG (time done) 2311 Rate: Rate (enter#) (62) Rhythm: NSR Brick: LAD Intervals: Normal [place] QRS: Normal Ischemia: Normal ST segments Computer interpretation: Agree with computer - Labs Labs: Laboratory Tests 06/14/21 06/14/21 06/14/21 23:20 23:20 23:20 WBC 9.4 RBC 4.69 L Hgb 14.1 Hct 42.0 MCV 89.6 MCH 30.1 MCHC 33.6 RDW 12.8 Plt Count 236 MPV 10.2 Neut # (Auto) 6.1 Lymph # (Auto) 2.2 [place] # (Auto) 0.9 Eos # (Auto) 0.1 Baso # (Auto) 0.1 Absolute Nucleated RBC 0.00 Nucleated RBC % 0.0 D-Dimer Sodium 137 Potassium 3.3 L Chloride 99 L Carbon Dioxide 26 Anion Gap 12.0 BUN 34 H Creatinine 1.0 Estimated GFR (MDRD) 75 L Glucose 120 H Calcium 9.2 Total Bilirubin 0.9 AST 20 ALT 26 Alkaline Phosphatase 53 Troponin I High Sens 3.6 Total Protein 7.3 Albumin 4.4 Globulin 2.9 Albumin/Globulin Ratio 1.5 Lipase 33 06/14/21 23:20 WBC RBC Hgb Hct MCV MCH MCHC RDW Plt Count MPV Neut # (Auto) Lymph # (Auto) [place] # (Auto) Eos # (Auto) Baso # (Auto) Absolute Nucleated RBC Nucleated RBC % D-Dimer 200.6 Sodium Potassium Chloride Carbon Dioxide Anion Gap BUN Creatinine Estimated GFR (MDRD) Glucose Calcium Total Bilirubin AST ALT Alkaline Phosphatase Troponin I High Sens Total Protein Albumin Globulin Albumin/Globulin Ratio Lipase PD MEDICAL DECISION MAKING - ED course ED course: 65-year-old man presents with palpitations, multiple episodes here in the emergency department without 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 His lab work, chest x-ray, EKG are noncontributory. His exam is benign. Patient feeling better. Agreeable to go home and follow-up outpatient. Return precautions given. Departure - Departure Disposition: Home, Self Care Clinical Impression: Palpitations Condition: Good Instructions: Heart Palpitations Prescriptions: Propranolol [Inderal] 10 mg PO BID PRN #30 tablet PRN Reason: Anxiety Comments: You were seen in the emergency department for heart palpitations. You were chest x-ray, EKG, and lab work did not show any emergent findings. Please follow-up with your primary doctor for further evaluation. Return to the emergency department if you have any new or worsening symptoms or other concerns.
[2021-06-15 01:48] VITALS: BP 124/61
--- NOTE | 2021-06-15 08:01 | XRAY Report ---
PROCEDURE: Chest 1 View X-Ray INDICATIONS: Chest pain TECHNIQUE: One view of the chest was acquired. COMPARISON: 04/02/2021 FINDINGS: Surgical changes and devices: None. Lungs and pleura: No pleural effusions or pneumothorax. Lungs are clear, hyperexpanded. Mediastinum: Mediastinal contours appear normal. Heart size is normal. Bones and chest wall: No suspicious bony lesions. Age-appropriate degenerative changes are seen. Overlying soft tissues appear unremarkable. IMPRESSION: Unremarkable portable chest for age, with hyperexpanded lungs noted. Note: No significant discrepancy from the preliminary report. Reviewed by: Camden Padgett MD on 06/15/2021 6:59 AM ELIZABETH Approved by: Camden Padgett MD on 06/15/2021 6:59 AM ELIZABETH Station ID: [id number]
== END 2021-06-15 01:49 | disposition home or self-care (01) ==
LOC: ED 22:57
DX: R00.2 Palpitations (principal); I10 Essential (primary) hypertension
CPT/HCPCS: 36415; 80053; 83690; 84484; 85025; 85379; 93005; 99283; 99284

== ENCOUNTER 2021-08-30 10:48 | Emergency (ER) | payer OTHER ==
[2021-08-30 10:58] VITALS: BP 138/79
[2021-08-30] MEDS ORDERED: IOVERSOL 320 100 ML VIAL IVP ONE ×2 (11:35→12:27)
[2021-08-30 11:43] LABS: BASOPHILS # (AUTO) 0.1 10^3/uL (0.0-0.1); BASOPHILS % (AUTO) 0.6 %; EOSINOPHILS # (AUTO) 0.2 10^3/uL (0.0-0.7); EOSINOPHILS % (AUTO) 2.1 %; HCT - HEMATOCRIT 45.1 % (42.0-52.0); LYMPHOCYTES # (AUTO) 1.7 10^3/uL (1.5-3.5); LYMPHOCYTES % (AUTO) 22.3 %; MEAN CORPUSCULAR HEMOGLOBIN 29.9 pg (27.0-31.0); MEAN CORPUSCULAR HGB CONC 33.3 g/dL (32.0-36.0); MEAN PLATELET VOLUME 10.2 fL (7.4-11.4); MONOCYTES # (AUTO) 0.7 10^3/uL (0.0-1.0); MONOCYTES % (AUTO) 8.8 %; NEUTROPHILS # (AUTO) 5.1 10^3/uL (1.5-6.6); NEUTROPHILS % (AUTO) 65.8 %; PLT - PLATELET COUNT 238 10^3/uL (130-450); RED BLOOD COUNT 5.01 10^6/uL (4.70-6.10); RED CELL DISTRIBUTION WIDTH 12.8 % (12.0-15.0); WHITE BLOOD COUNT 7.8 x10^3/uL (4.8-10.8)
[2021-08-30 11:48] LABS: BILIRUBIN,URINE NEGATIVE (NEGATIVE); GLUCOSE, URINE (UA) NEGATIVE (NEGATIVE); KETONES,URINE (UA) NEGATIVE (NEGATIVE); LEUKOCYTE ESTERASE, URINE NEGATIVE (NEGATIVE); NITRITE,URINE NEGATIVE (NEGATIVE); OCCULT BLOOD,URINE NEGATIVE (NEGATIVE); PROTEIN,URINE NEGATIVE (NEGATIVE); UROBILINOGEN,URINE 0.2 (NORMAL) E.U./dL (NORMAL)
[2021-08-30 11:49] LABS: CLARITY,URINE CLEAR (CLEAR)
[2021-08-30 12:01] LABS: ALBUMIN 4.5 g/dL (3.2-5.5); ALBUMIN/GLOBULIN RATIO 1.4 (1.0-2.2); BILIRUBIN,TOTAL 0.8 mg/dL (0.2-1.0); CALCIUM 9.8 mg/dL (8.5-10.3); CREATININE 0.7 mg/dL (0.6-1.2); POTASSIUM 3.6 mmol/L (3.5-5.0); TOTAL PROTEIN 7.7 g/dL (6.7-8.2)
--- NOTE | 2021-08-30 12:51 | CT Report ---
PROCEDURE: Abdomen/Pelvis W INDICATIONS: LLQ Abdominal pain, diverticulitis suspected CONTRAST: IV CONTRAST: Optiray 320 ml: 100 PO CONTRAST: *NO PO CONTRAST TECHNIQUE: After the administration of IV contrast, 5 mm thick sections acquired from the diaphragms to the symp hysis. 5 mm thick coronal and sagittal reformats were acquired. For radiation dose reduction, the f ollowing was used: automated exposure control, adjustment of mA and/or kV according to patient size. COMPARISON: 03/06/2021 FINDINGS: Image quality: Excellent. ABDOMEN: Lung bases: Lung bases are clear. Heart size is normal. Solid organs: Liver and spleen are normal in size and enhancement. Diffuse fatty liver infiltration can be seen. Gallbladder wall does not appear thickened. Biliary system is non dilated. Pancre as enhances normally. No adrenal nodules. Kidneys demonstrate normal size and enhancement, without hydronephrosis. A simple appearing right renal cyst is again seen. Peritoneum and bowel: In this patient with this given history, scrutiny is given to the sigmoid colo n and the left lower quadrant of the abdomen. Negative for diverticulosis or diverticulitis. No focal left lower quadrant inflammatory changes are seen. Bowel loops demonstrate normal wall thickness and caliber. No free fluid or air. A normal appendix is incidentally noted. Nodes and vessels: No retroperitoneal or mesenteric adenopathy by size criteria. Aorta and inferior vena cava are normal in size. Atherosclerotic calcification is seen. Miscellaneous: No ventral hernias. PELVIS: Genitourinary: Bladder wall thickness is normal. Miscellaneous: No inguinal hernias or adenopathy. Bones: No suspicious bony lesions. No vertebral body compression fractures. Mild dextroconvex scol iotic curvature is seen. IMPRESSION: No imaging explanation is found for the patient's presenting symptoms. Negative for dive rticulosis or diverticulitis. Incidental note is made of: Fatty liver infiltration Simple appearing right renal cyst Normal appendix Mild dextroconvex scoliotic curvature Reviewed by: Camden Padgett MD on 08/30/2021 11:50 AM AKILDEFONSO Approved by: Camden Padgett MD on 08/30/2021 11:50 AM IAILDEFONSO Station ID: [id number]
--- NOTE | 2021-08-30 13:09 | ED Physician Documentation ---
History of Present Illness - Stated complaint Stated Complaint: MALE - Chief complaint Chief Complaint: General - History obtained from History obtained from: Patient - History of Present Illness Timing: Today Pain level max: 2 Pain level now: 2 - Additonal information Additional information: Patient is a 65-year-old male who states that he has had hemorrhoids for a long time. States today he noticed bright red blood on the toilet paper. There was a small amount yesterday as well. Has chronic left lower abdominal pain. Not worse than usual. Took a hydrocortisone suppository yesterday, has not taken anything today. He states he had a normal colonoscopy about 6 months ago. No fevers. No chills. Not on anticoagulants. Nothing makes it better or worse. Review of Systems Ten Systems: 10 systems reviewed and negative Constitutional: denies: Fever, Chills GI: denies: Vomiting, Diarrhea Skin: denies: Rash Musculoskeletal: denies: Neck pain, Back pain Neurologic: denies: Headache PD PAST MEDICAL HISTORY - Past Medical History Cardiovascular: Hypertension, High cholesterol, Coronary artery disease Respiratory: Sleep apnea, CPAP use Neuro: Head injury, Headaches Endocrine/Autoimmune: Other GI: GERD, Colon polyps, Other : Frequency, Other HEENT: Chronic vision loss, Chronic sinusitis, Chronic hearing loss, Other Psych: Depression, Anxiety, Panic attacks, Post traumatic stress disorder, Other Musculoskeletal: Osteoarthritis, Chronic back pain, Other Derm: Eczema, Psoriasis, Rosacea - Past Surgical History Past Surgical History: Yes General: Colonoscopy, EGD Ortho: Other HEENT: Other - Present Medications Home Medications: Ambulatory Orders Medication Instructions Recorded Confirmed Acetaminophen [Tylenol] 650 mg PO Q6H PRN 01/15/21 04/02/21 Aspirin [Aspirin EC] 81 mg PO DAILY 01/15/21 06/14/21 Atenolol [Tenormin] 50 mg PO DAILY 01/15/21 06/14/21 Atorvastatin [Lipitor] 20 mg PO DAILY 01/15/21 06/14/21 Chlorthalidone 25 mg PO DAILY 01/15/21 06/14/21 Cholecalciferol [Vitamin D3] 50 mcg PO DAILY 01/15/21 06/14/21 Docusate Sodium [Dss] 250 mg PO DAILY PRN 01/15/21 04/02/21 Famotidine [Pepcid] 20 mg PO BID 01/15/21 04/02/21 Fluticasone [Flonase] 1 sprays ANA BID 01/15/21 04/02/21 Gabapentin [Neurontin] 600 mg PO BID 01/15/21 04/02/21 Glucos Sul 2Kcl/MSM/Chond/C/Mn 2 each PO DAILY 01/15/21 04/02/21 [Glucosamine Chondroitin Cap] Magnesium Oxide [Magnesium] 400 mg PO DAILY 01/15/21 04/02/21 Meloxicam [Mobic] 15 mg PO DAILY 01/15/21 04/02/21 [place]-3/Dha/Epa/Fish Oil [Fish Oil 1 each PO DAILY 01/15/21 04/02/21 1,000 mg Softgel] Psyllium [Metamucil] 1 each PO DAILY 01/15/21 06/14/21 Simethicone [Mylicon] 80 mg PO BID PRN 01/15/21 06/14/21 Zinc Gluconate [Zinc] 50 mg PO DAILY 01/15/21 06/14/21 methocarbamoL [Methocarbamol] 1 - 2 tab PO QID PRN 01/15/21 06/14/21 Capsaicin [Zostrix] 56.6 gm PO DAILY 06/14/21 06/14/21 Carboxymethylcellulose Sodium 1 drops OP DAILY 06/14/21 06/14/21 [Refresh Plus] Desonide [Desowen] 1 applic TOP DAILY 06/14/21 06/14/21 Docusate Sodium [Dss] 250 mg PO DAILY 06/14/21 06/14/21 Propranolol [Inderal] 10 mg PO BID PRN #30 tablet 06/15/21 - Allergies Allergies/Adverse Reactions: Allergies Allergy/AdvReac Type Severity Reaction Status Date / Time codeine AdvReac Nausea Verified 08/30/21 10:58 morphine AdvReac Nausea Verified 08/30/21 10:58 - Social History Does the pt smoke?: No Smoking Status: Never smoker Does the pt drink ETOH?: Yes Does the pt have substance abuse?: Yes - Immunizations Immunizations are current?: Yes - POLST Patient has POLST: No POLST Status: Full Code PD ED PE NORMAL - Vitals Vital signs reviewed: Yes - General General: Alert and oriented X 3, No acute distress, Well developed/nourished - HEENT HEENT: PERRL, Moist mucous membranes - Neck Neck: Supple, no meningeal sign - Cardiac Cardiac: RRR, Strong equal pulses - Respiratory Respiratory: No respiratory distress, Clear bilaterally - Abdomen Abdomen: Soft, Non distended, Other (Mild tenderness palpation left lower quadrant. No peritoneal signs.) - Male Male : Other (No visible external hemorrhoids. Small amount of bright red blood in the rectum. No active bleeding.) - Derm Derm: Warm and dry - Extremities Extremities: No edema - Neuro Neuro: Alert and oriented X 3 - Psych Psych: Normal mood, Normal affect Results - Vitals Vitals: Vital Signs - 24 hr 08/30/21 10:55 Temperature 36.9 C Heart Rate 59 L Respiratory 16 Rate Blood Pressure 138/79 H O2 Saturation 97 Oxygen O2 Source Room air - Labs Labs: Laboratory Tests 08/30/21 08/30/21 08/30/21 11:34 11:34 11:40 WBC 7.8 RBC 5.01 Hgb 15.0 Hct 45.1 MCV 90.0 MCH 29.9 MCHC 33.3 RDW 12.8 Plt Count 238 MPV 10.2 Neut # (Auto) 5.1 Lymph # (Auto) 1.7 [place] # (Auto) 0.7 Eos # (Auto) 0.2 Baso # (Auto) 0.1 Absolute Nucleated RBC 0.00 Nucleated RBC % 0.0 Sodium 139 Potassium 3.6 Chloride 102 Carbon Dioxide 26 Anion Gap 11.0 BUN 25 H Creatinine 0.7 Estimated GFR (MDRD) 114 Glucose 139 H Calcium 9.8 Total Bilirubin 0.8 AST 24 ALT 30 Alkaline Phosphatase 53 Total Protein 7.7 Albumin 4.5 Globulin 3.2 Albumin/Globulin Ratio 1.4 Lipase 33 Urine Color YELLOW Urine Clarity CLEAR Urine pH 6.0 Ur Specific Tell 1.020 Urine Protein NEGATIVE Urine Glucose (UA) NEGATIVE Urine Ketones NEGATIVE Urine Occult Blood NEGATIVE Urine Nitrite NEGATIVE Urine Bilirubin NEGATIVE Urine Urobilinogen 0.2 (NORMAL) Ur Leukocyte Esterase NEGATIVE Ur Microscopic Review NOT INDICATED Urine Culture Comments NOT INDICATED - Rads (name of study) CT abd/pelvis Radiology: Final report received, EMP read contemporaneously, See rad report PD MEDICAL DECISION MAKING - ED course Complexity details: reviewed results, re-evaluated patient, considered differential, d/w patient ED course: 65-year-old male with likely internal hemorrhoids. No acute findings on CT scan or laboratory testing. No active bleeding. We will continue his hydrocortisone suppository and have him follow-up with his doctor for further care. He states he had a normal recent colonoscopy as well. Patient counseled regarding signs and symptoms for which I believe and urgent re-evaluation would be necessary. Patient with good understanding of and agreement to plan and is comfortable going home at this time This document was made in part using voice recognition software. While efforts are made to proofread this document, sound alike and grammatical errors may occur. Departure - Departure Disposition: Home, Self Care Clinical Impression: BRBPR (bright red blood per rectum) Hemorrhoids Qualifiers: Hemorrhoid type: unspecified Qualified Code(s): K64.9 - Unspecified hemorrhoids Condition: Good Instructions: ED Hemorrhoids, ED Hematochezia Stable Follow-Up: Pedro Luis Magana ARNP [Primary Care Provider] - Within 1 week Comments: Your CT scan and blood work did not show any acute abnormalities. I would continue the hydrocortisone suppositories at home and follow-up with your doctor for further care. Return if you worsen Discharge Date/Time: 08/30/21 13:15
== END 2021-08-30 13:15 | disposition home or self-care (01) ==
LOC: ED 10:48
DX: K64.9 Unspecified hemorrhoids (principal); I10 Essential (primary) hypertension
CPT/HCPCS: 36415; 74177; 80053; 81003; 83690; 85025; 99284; Q9967; 81001; 87086

== ENCOUNTER 2022-01-23 20:41 | Outpatient (CLI) | payer OTHER, MEDICARE | END 2022-01-23 20:42 | disposition critical access hospital (66) | LOC: EMS 20:41 | DX: M54.50 Low back pain, unspecified (principal) | CPT/HCPCS: A0425; A0429 ==

== ENCOUNTER 2022-01-23 20:55 | Emergency (ER) | payer MEDICARE, OTHER ==
--- NOTE | 2022-01-23 22:54 | ED Physician Documentation ---
PD HPI BACK PAIN - Stated complaint Stated Complaint: LOW BACK PAIN - Chief complaint Chief Complaint: Back Pain - History obtained from History obtained from: Patient, EMS - History of Present Illness Timing - onset: Enter time (16:30), Today Timing - details: Abrupt onset Pain level now: 8 Location: Lower, Other (across lower back but predominantly right-sided) Associated symptoms: Incontinent of stool (chronic issue, no different today than prior). No: Fever, Weakness, Numbness, Incontinent of urine, Unable to urinate, Hematuria Improves with: Rest Worsened by: Movement Contributing factors: Twisting Recently seen: Not recently seen - Additional information Additional information: BIBA. c/o sudden onset severe low back pain, across lower back but predominantly right sided. Onset 4:30 PM when he was getting out of the bathtub. He has chronic low back pain and takes meloxicam, gabapentin, and methocarbimol. I do not see any previous [facility] ED visits for back pain (evaluated / admitted for CP in the past). Pain is distinctly worse with movement. Review of Systems Constitutional: reports: Reviewed and negative GI: reports: Reviewed and negative : denies: Dysuria, Frequency, Unable to Void, Incontinent Musculoskeletal: reports: Back pain, Reviewed and negative. denies: Neck pain, Extremity pain, Joint pain, Extremity swelling, Joint swelling, Pain with weight bearing Neurologic: denies: Generalized weakness, Focal weakness, Numbness PD PAST MEDICAL HISTORY - Past Medical History Past Medical History: No Cardiovascular: Hypertension, High cholesterol, Coronary artery disease Respiratory: Sleep apnea, CPAP use Neuro: Head injury, Headaches Endocrine/Autoimmune: Other GI: GERD, Colon polyps, Other : Frequency, Other HEENT: Chronic vision loss, Chronic sinusitis, Chronic hearing loss, Other Psych: Depression, Anxiety, Panic attacks, Post traumatic stress disorder, Other Musculoskeletal: Osteoarthritis, Chronic back pain, Other Derm: Eczema, Psoriasis, Rosacea - Past Surgical History Past Surgical History: Yes General: Colonoscopy, EGD Ortho: Other HEENT: Other - Present Medications Home Medications: Ambulatory Orders Medication Instructions Recorded Confirmed Atorvastatin [Lipitor] 20 mg PO DAILY 01/15/21 01/23/22 Chlorthalidone 25 mg PO DAILY 01/15/21 01/23/22 Cholecalciferol [Vitamin D3] 50 mcg PO DAILY 01/15/21 01/23/22 Famotidine [Pepcid] 20 mg PO BID 01/15/21 01/23/22 Gabapentin [Neurontin] 600 mg PO BID 01/15/21 01/23/22 Meloxicam [Mobic] 15 mg PO DAILY 01/15/21 01/23/22 [place]-3/Dha/Epa/Fish Oil [Fish Oil 1 each PO DAILY 01/15/21 01/23/22 1,000 mg Softgel] Psyllium [Metamucil] 1 each PO DAILY 01/15/21 01/23/22 Simethicone [Mylicon] 80 mg PO BID PRN 01/15/21 01/23/22 Zinc Gluconate [Zinc] 50 mg PO DAILY 01/15/21 01/23/22 methocarbamoL [Methocarbamol] 1 - 2 tab PO QID PRN 01/15/21 01/23/22 Docusate Sodium [Dss] 250 mg PO DAILY 06/14/21 06/14/21 Cetirizine [ZyrTEC] 10 mg PO DAILY PRN 01/23/22 01/23/22 Propranolol [Inderal] 50 mg PO DAILY 01/23/22 01/23/22 hydrOXYzine HCL [Hydroxyzine HCl] 25 mg PO PRN PRN 01/23/22 01/23/22 Ondansetron Odt [Zofran] 4 mg TL Q6H PRN #14 tablet 01/24/22 diazePAM [Valium] 5 - 10 mg PO TID PRN #15 tablet 01/24/22 oxyCODONE [Roxicodone] 5 mg PO Q6H PRN #10 tablet 01/24/22 traMADol [Ultram] 50 mg PO Q4-6H #20 tablet 01/24/22 - Allergies Allergies/Adverse Reactions: Allergies Allergy/AdvReac Type Severity Reaction Status Date / Time codeine AdvReac Nausea Verified 01/23/22 21:35 morphine AdvReac Nausea Verified 01/23/22 21:35 - Social History Does the pt smoke?: No Smoking Status: Never smoker Does the pt drink ETOH?: Yes Does the pt have substance abuse?: Yes - Immunizations Immunizations are current?: Yes - POLST Patient has POLST: No POLST Status: Full Code PD ED PE NORMAL - Vitals Vital signs reviewed: Yes - General General: Alert and oriented X 3, Other (overweight male lying on side (right side decubitus) , appears to be in painful discomfort with any movement involving lower back) - Cardiac Cardiac: RRR, No murmur - Respiratory Respiratory: No respiratory distress, Clear bilaterally - Abdomen Abdomen: Soft, Non tender - Back Back: No CVA TTP, No spinal TTP - Derm Derm: No rash - Extremities Extremities: No edema - Neuro Neuro: Alert and oriented X 3, die lay out worker 2-12 intact, No motor deficit (5/5 bilateral dorsi/plantarflexion), No sensory deficit (LTS intact bilateral feet), Other (1+ bilateral DTR (patellar) without clonus) Results - Vitals Vitals: Oxygen O2 Source Room air PD MEDICAL DECISION MAKING - ED course Complexity details: re-evaluated patient, considered differential, d/w patient ED course: emergent testing not indicated at this time; no injury. chronic low back pain exacerbated with twisting motion as he was getting out of bathtub. In discussing options for pain control, he would like to avoid strong narcotic/opiate medications. He is given 60mg IM toradol, 5mg po valium, 50mg po tramadol, and 10mg PO decadron. He had some relief with this and [facility] but says that he does not yet have adequate pain relief. after further discussion regarding options and his stated allergies, mutual decision is to give morphine (6mg IM is my recommendation for dose) and 8mg TL zofran. He says he doesnt have a morphine allergy per se, but that it causes n/v and he says he is wanting to try this to help with pain rather than worry about n/v side effect. He is given these meds and reports mild improvement in pain and no n/v. He says he is ready for discharge, given take-home percocet and rx for oxycodone, ultram, valium, and zofran transmitted to his pharmacy of choice. I instructed him to use the ultram for mild/moderate pain, oxycodone for the more severe pain. Valium can be also used if muscle spasm component, and zofran PRN nausea. Departure - Departure Disposition: 01 Home, Self Care Clinical Impression: Back pain Qualifiers: Back pain location: low back pain Chronicity: acute Back pain laterality: right Sciatica presence: without sciatica Qualified Code(s): M54.50 - Low back pain, unspecified Condition: Good Instructions: ED Neck Back Pain General Follow-Up: Pedro Luis Magana ARNP [Primary Care Provider] - Prescriptions: oxyCODONE [Roxicodone] 5 mg PO Q6H PRN #10 tablet PRN Reason: Pain traMADol [Ultram] 50 mg PO Q4-6H #20 tablet diazePAM [Valium] 5 - 10 mg PO TID PRN #15 tablet PRN Reason: Spasms Ondansetron Odt [Zofran] 4 mg TL Q6H PRN #14 tablet PRN Reason: Nausea / Vomiting Comments: Prescriptions for ultram (pain medication), oxycodone (stronger pain medication), ondansetron (anti nausea medication), and diazepam (valium, muscle relaxant) have all been electronically submitted to [facility] pharmacy in [place]. Use the ultram for mild/moderate pain. You can also use the valium/diazepam at the same time for muscle spasm. Use the oxycodone for more severe pain or if the ultram is ineffective within 45-60 mintues. Realize that these medications can all cause sedation and combining the medications increases risk of side effect, so use them only when needed and according to the label instructions. If you are drowsy but your pain is inadequately controlled, you should follow up with your doctor or return to the emergency department rather than taking more medication. The goal of these medications is adequate pain control without becoming too sedated (such as difficulty walking, talking, or if someone else has difficulty waking you) Discharge Date/Time: 01/24/22 04:14
[2022-01-23] MEDS ORDERED: KETOROLAC 60 MG/2 ML VIAL IM STA (23:24)
[2022-01-23] MEDS ORDERED: DEXAMETHASONE 10 MG/ML VIAL PO STA (23:25)
[2022-01-23] MEDS ORDERED: traMADol 50 MG TABLET PO STA (23:25)
[2022-01-23] MEDS ORDERED: diazePAM 5 MG TABLET PO STA (23:25)
[2022-01-23] MEDS ORDERED: CHERRY SYRUP 10 ML UDC PO ONE (23:25)
[2022-01-24] MEDS ORDERED: ONDANSETRON ODT 4 MG TABLET TL STA (02:09)
[2022-01-24] MEDS ORDERED: MORPHINE 2 MG/ML CARPUJECT IM STA (02:09)
[2022-01-24 02:30] VITALS: BP 137/58
[2022-01-24] MEDS ORDERED: ONDANSETRON ODT 4 MG Prepack 2 TL PRN (02:50)
[2022-01-24] MEDS ORDERED: oxyCODONE/ACET 5/325 Prepack 4 PO STA (02:50)
== END 2022-01-24 04:14 | disposition home or self-care (01) ==
LOC: EDUNIT# → ED 20:55
DX: M54.50 Low back pain, unspecified (principal); G89.29 Other chronic pain; I10 Essential (primary) hypertension
CPT/HCPCS: 96372; 99284; A9270; Q0162

== ENCOUNTER 2022-05-05 16:02 | Emergency (ER) | payer OTHER ==
[2022-05-05 16:26] VITALS: BP 129/72
[2022-05-05] MEDS ORDERED: SODIUM CHLORIDE 0.9% 1,000 ML IV STA ×2 (16:29→17:00)
[2022-05-05 16:47] LABS: BASOPHILS # (AUTO) 0.1 10^3/uL (0.0-0.1); BASOPHILS % (AUTO) 0.6 %; EOSINOPHILS # (AUTO) 0.2 10^3/uL (0.0-0.7); EOSINOPHILS % (AUTO) 2.2 %; HCT - HEMATOCRIT 43.2 % (42.0-52.0); HGB - HEMOGLOBIN 14.7 g/dL (14.0-18.0); LYMPHOCYTES # (AUTO) 2.6 10^3/uL (1.5-3.5); MEAN CORPUSCULAR HEMOGLOBIN 30.3 pg (27.0-31.0); MEAN CORPUSCULAR VOLUME 89.1 fL (80.0-94.0); MEAN PLATELET VOLUME 9.8 fL (7.4-11.4); MONOCYTES # (AUTO) 0.8 10^3/uL (0.0-1.0); MONOCYTES % (AUTO) 8.7 %; NEUTROPHILS # (AUTO) 5.9 10^3/uL (1.5-6.6); NEUTROPHILS % (AUTO) 60.6 %; PLT - PLATELET COUNT 271 10^3/uL (130-450); RED BLOOD COUNT 4.85 10^6/uL (4.70-6.10); RED CELL DISTRIBUTION WIDTH 12.5 % (12.0-15.0); WHITE BLOOD COUNT 9.7 x10^3/uL (4.8-10.8)
--- NOTE | 2022-05-05 16:51 | XRAY Report ---
PROCEDURE: Chest 1 View X-Ray INDICATIONS: chest pain TECHNIQUE: One view of the chest was acquired. COMPARISON: Single view the chest dated 06/14/2021 FINDINGS: Surgical changes and devices: None. Lungs and pleura: No pleural effusions or pneumothorax. Lungs are clear. Mediastinum: Mediastinal contours appear normal. Heart size is normal. Bones and chest wall: No suspicious bony lesions. Overlying soft tissues appear unremarkable. IMPRESSION: No acute cardiopulmonary findings. Reviewed by: Nadia Edmonds MD on 05/05/2022 4:50 PM PDT Approved by: Nadia Edmonds MD on 05/05/2022 4:50 PM PDT Station ID: [id number]
[2022-05-05 16:58] LABS: ALBUMIN 4.3 g/dL (3.2-5.5); ALBUMIN/GLOBULIN RATIO 1.3 (1.0-2.2); BILIRUBIN,TOTAL 0.8 mg/dL (0.2-1.0); CALCIUM 9.3 mg/dL (8.5-10.3); CREATININE 0.9 mg/dL (0.6-1.2); POTASSIUM 3.5 mmol/L (3.5-5.0); TOTAL PROTEIN 7.5 g/dL (6.7-8.2)
--- NOTE | 2022-05-05 17:26 | ED Physician Documentation ---
PD HPI HEENT - Stated complaint Stated Complaint: COVID/headache/shortness of breath - Chief complaint Chief Complaint: Resp - History obtained from History obtained from: Patient - Additional information Additional information: The patient comes to the emergency department chief complaint of COVID symptoms. He was diagnosed about a week ago via home test and has had headache, body aches, cough, and shortness of breath. He states that he is actually starting to feel better but called the [place] nurse hotline to find out how long he should expect symptoms to last. When they heard his symptoms, they told him to come to the emergency department. He states that he has been drinking fluids is much as possible. He has not had fevers or chills. The patient states he is gained a lot of weight in the last year or 2 and that he feels just generally deconditioned and is not sure if his shortness of breath is just due to that with some sickness on top of it. He states he does not have any underlying lung diseases. No other complaints at this time Review of Systems Ten Systems: 10 systems reviewed and negative Constitutional: reports: Reviewed and negative. denies: Fever, Chills Eyes: reports: Reviewed and negative Ears: reports: Reviewed and negative Nose: reports: Reviewed and negative Throat: reports: Reviewed and negative Cardiac: reports: Reviewed and negative Respiratory: reports: Dyspnea, Cough GI: reports: Reviewed and negative : reports: Reviewed and negative Skin: reports: Reviewed and negative Musculoskeletal: reports: Reviewed and negative Neurologic: reports: Reviewed and negative Psychiatric: reports: Reviewed and negative Endocrine: reports: Reviewed and negative Immunocompromised: reports: Reviewed and negative PD PAST MEDICAL HISTORY - Past Medical History Cardiovascular: Hypertension, High cholesterol, Coronary artery disease Respiratory: Sleep apnea, CPAP use Neuro: Head injury, Headaches Endocrine/Autoimmune: Other GI: GERD, Colon polyps, Other : Frequency, Other HEENT: Chronic vision loss, Chronic sinusitis, Chronic hearing loss, Other Psych: Depression, Anxiety, Panic attacks, Post traumatic stress disorder, Other Musculoskeletal: Osteoarthritis, Chronic back pain, Other Derm: Eczema, Psoriasis, Rosacea - Past Surgical History Past Surgical History: Yes General: Colonoscopy, EGD Ortho: Other HEENT: Other - Present Medications Home Medications: Ambulatory Orders Medication Instructions Recorded Confirmed Atorvastatin [Lipitor] 20 mg PO DAILY 01/15/21 01/23/22 Chlorthalidone 25 mg PO DAILY 01/15/21 01/23/22 Cholecalciferol [Vitamin D3] 50 mcg PO DAILY 01/15/21 01/23/22 Famotidine [Pepcid] 20 mg PO BID 01/15/21 01/23/22 Gabapentin [Neurontin] 600 mg PO BID 01/15/21 01/23/22 Meloxicam [Mobic] 15 mg PO DAILY 01/15/21 01/23/22 [place]-3/Dha/Epa/Fish Oil [Fish Oil 1 each PO DAILY 01/15/21 01/23/22 1,000 mg Softgel] Psyllium [Metamucil] 1 each PO DAILY 01/15/21 01/23/22 Simethicone [Mylicon] 80 mg PO BID PRN 01/15/21 01/23/22 Zinc Gluconate [Zinc] 50 mg PO DAILY 01/15/21 01/23/22 methocarbamoL [Methocarbamol] 1 - 2 tab PO QID PRN 01/15/21 01/23/22 Docusate Sodium [Dss] 250 mg PO DAILY 06/14/21 06/14/21 Cetirizine [ZyrTEC] 10 mg PO DAILY PRN 01/23/22 01/23/22 Propranolol [Inderal] 50 mg PO DAILY 01/23/22 01/23/22 hydrOXYzine HCL [Hydroxyzine HCl] 25 mg PO PRN PRN 01/23/22 01/23/22 Ondansetron Odt [Zofran] 4 mg TL Q6H PRN #14 tablet 01/24/22 diazePAM [Valium] 5 - 10 mg PO TID PRN #15 tablet 01/24/22 oxyCODONE [Roxicodone] 5 mg PO Q6H PRN #10 tablet 01/24/22 traMADol [Ultram] 50 mg PO Q4-6H #20 tablet 01/24/22 - Allergies Allergies/Adverse Reactions: Allergies Allergy/AdvReac Type Severity Reaction Status Date / Time codeine AdvReac Nausea Verified 05/05/22 16:21 morphine AdvReac Nausea Verified 05/05/22 16:21 - Social History Does the pt smoke?: No Smoking Status: Never smoker Does the pt drink ETOH?: Yes Does the pt have substance abuse?: Yes - Immunizations Immunizations are current?: Yes - POLST Patient has POLST: No POLST Status: Full Code PD ED PE NORMAL - Vitals Vital signs reviewed: Yes - General General: Alert and oriented X 3, No acute distress, Well developed/nourished - HEENT HEENT: Atraumatic, PERRL, EOMI, Moist mucous membranes - Neck Neck: Supple, no meningeal sign - Cardiac Cardiac: RRR, No murmur, Strong equal pulses - Respiratory Respiratory: No respiratory distress, Clear bilaterally, Other (The patient is speaking easily in full sentences, and stringing sentences together with no appearance of dyspnea whatsoever.) - Abdomen Abdomen: Soft, Non tender, Other (Obese abdomen) - Derm Derm: Normal color, Warm and dry, No rash - Extremities Extremities: No deformity, No edema - Neuro Neuro: Alert and oriented X 3, director of speech pathology 2-12 intact, Normal speech - Psych Psych: Normal mood, Normal affect Results - Vitals Vitals: Vital Signs - 24 hr 05/05/22 16:21 Temperature 37.1 C Heart Rate 70 Respiratory 22 Rate Blood Pressure 129/72 O2 Saturation 95 Oxygen O2 Source Room air - Labs Labs: Laboratory Tests 05/05/22 05/05/22 16:42 16:42 WBC 9.7 RBC 4.85 Hgb 14.7 Hct 43.2 MCV 89.1 MCH 30.3 MCHC 34.0 RDW 12.5 Plt Count 271 MPV 9.8 Neut # (Auto) 5.9 Lymph # (Auto) 2.6 [place] # (Auto) 0.8 Eos # (Auto) 0.2 Baso # (Auto) 0.1 Absolute Nucleated RBC 0.00 Nucleated RBC % 0.0 Sodium 134 L Potassium 3.5 Chloride 100 L Carbon Dioxide 25 Anion Gap 9.0 BUN 23 H Creatinine 0.9 Estimated GFR (MDRD) 85 L Glucose 106 H Calcium 9.3 Total Bilirubin 0.8 AST 26 ALT 39 Alkaline Phosphatase 53 Total Protein 7.5 Albumin 4.3 Globulin 3.2 Albumin/Globulin Ratio 1.3 Lipase 36 - Rads (name of study) Chest x-ray Radiology: Final report received, EMP read indepedently, See rad report (Negative) PD MEDICAL DECISION MAKING - ED course Complexity details: reviewed results, re-evaluated patient, considered differential, d/w patient ED course: The patient was actually quite well-appearing, and work-up, including chest x- ray and labs, was unremarkable. He was given approximately 500 cc of IV fluid in the emergency department and stated he felt ready to go home. I discussed with him that the duration of his symptoms so far is well within expected for COVID and the fact that he is improving is a good sign. We have discussed symptomatic management at home and the usual indications for return. Departure - Departure Disposition: 01 Home, Self Care Clinical Impression: COVID-19 Condition: Stable Instructions: ED Viral Syndrome Comments: Your labs look good and your chest x-ray is clear. Your lungs are normal on exam and your oxygen levels are normal on room air. Many COVID cases last 1 to 2 weeks as far as major symptoms. Some cases display no symptoms or very mild s ymptoms and are shorter; others have very severe symptoms and last for weeks to months. Your current symptoms are very much in line with typical COVID cases and will most likely resolve completely on their own. You may go outside to get fresh air and walk, as this will likely help you to feel better and will help your overall health. You may use cough suppressants if needed, and Tylenol and/or ibuprofen if needed for aches and pains. Please follow-up with your doctor as needed.
== END 2022-05-05 17:44 | disposition home or self-care (01) ==
LOC: ED 16:02
DX: U07.1 COVID-19 (principal); I10 Essential (primary) hypertension
CPT/HCPCS: 36415; 80053; 83690; 85025; 99284

== ENCOUNTER 2022-09-08 15:56 | Outpatient (CLI) | payer OTHER ==
--- NOTE | 2022-09-08 17:00 | SLEEP CARE CONSULTATION ---
Information from patient questionnaire entered by Denny Zazueta. I have reviewed and concur with the information entered by Denny Zazueta. This document represents the service I personally performed and the decisions made by me, Charline Gould ARNP. History of Present Illness Service Date and Time: 09/08/2022 1556 Reason for Visit: New patient, Previously diagnosed sleep apnea, sleep apnea on CPAP therapy Chief Complaint: reports: Unrefreshed sleep, Snoring, Excessive daytime sleepiness, Fatigue Date of Onset: 20-30 years Usual bedtime: 1am Time it takes to fall asleep: 30min Snores at night: Yes Observed to quit breathing while asleep: No Sleeps alone due to snoring: No Number of times waking at night: 1 Reasons for waking at night: reports: Bathroom, Other (noise) Toss, Turn, or Twitch while sleeping: No Recalls having dreams: Yes Usually gets out of bed at: 730-10 am Feels refreshed in the morning: No Morning headache: Yes (12pm it usually subsides) Sleepy or fatigued during the day: Yes Ever fallen asleep while driving: No Takes day naps: Yes Dreams during day naps: No Prior sleep studies: Yes (10 years ago [facility] ) Year and Where: 2003 [facility] Type of Sleep Study: Polysomnography Additional HPI information: I had the pleasure of seeing FRIEDA BOUCHER today regarding the possibility of him having a sleep disorder. His current complaints are unrefreshed sleep, snoring, excessive daytime sleepiness and fatigue. He has had a CPAP in the past. He is still tired all the time and wanting to sleep all the time. He is using a ResMed and has been receiving care throught the [place]. He was diagnosed with sleep apnea in 2003. He at first did surgery, UPPP, in 2003 but ended up on CPAP a couple years later, about 2008-08. He was sent here because he is having daytime sleepiness, needing daily naps and is not refreshed by his sleep. He is being treated for depression but is having lots of changes in medications. - Parasomnia Symptoms Ever been unable to move upon waking from sleep: No Walks in sleep: No Talks in sleep: No Ever acted out dreams in sleep: Yes Ever felt weak in the knees when startled or emotional: No Bothered by creepy, crawly, restless sensations in legs: No Problems with memory or concentration: Yes CPAP Compliance Data - Data Reviewed with Patient Average duration of nightly device use: 7 hours 56 minutes Compliance rate %: 97 (89/90 days used) Current pressure setting (cmH2O): 4-20 (median 12.9, avg 15.5, max 17.0) Average residual AHI: 2.4 Central apnea: 0.1 Obstructive apnea: 0.2 Average large leak: 0.6 lpm Compliance data discussion: He has a ResMed that was setup last in 12/28/2020 by [place]. He is using a full face mask. He is getting his supplies from [place]. Subjective Patient concerns: reports: mask discomfort (from mask headgear on his neck, has bone spurs there), air blowing in eyes, mask leak noise, dry mouth, nose, throat. denies: aerophagia, condensation in mask/hose, nasal congestion, epistaxis Observed to snore while using device: No Current pressure setting perceived as: comfortable On therapy, patient: reports: other (Not noting difference at this time). denies: drowsiness while driving Initial [place] Sleepiness Scale score: 5 (09/05/2022) Past Medical History Past Medical History: reports: Hypertension, Arthritis, Fibromyalgia, Anxiety, Depression, Other (UPPP surgery; 1980 suffered head injury) Social History The patient's occupation is a [employer]. Patient is and lives in [place]. Have you smoked in the past 12 months: No Alcohol use: Yes Alcohol amount and frequency: 1-2 a year Caffeine use: No Family History Family history of sleep disordered breathing: No (doesn't know) Allergies and Home Medications Drug allergies reviewed: Yes (sensitivity to codeine and morphine, not allergy) Home medication list reviewed: Yes Allergy and home medication list: Medications: Gabapentin Meloxicam Atenolol Baby aspririn Isosorbide Atorvastatin Venlafaxine for depression Review of Systems Weight gain over past 5 years: 25 Cardiovascular: reports: high blood pressure, palpitations (very rare), chest pain (very rare) Respiratory: reports: shortness of breath Gastrointestinal: reports: abdominal pain Neurological: reports: headaches Psychiatric: reports: anxiety, depression Ear/Nose/Throat: reports: nasal congestion, sinus problems, tonsillectomy Endocrine: reports: sluggishness, increased urination, unexplained weakness Musculoskeletal: reports: joint pain, neck pain, back pain, muscle pain or cramping Immunologic: reports: sneezing, itching Physical Exam Vital signs obtained and entered by: DENNY Coffman MA Blood Pressure: 138/76 (left arm) Cuff size: long Heart Rate: 69 O2 Saturation: 94 Height: 5 ft 11 in Weight: 315 lb 12.8 oz Body Mass Index: 44.0 BMI Classification: Morbidly Obese Neck circumference: 18.75 Mouth and throat: narrow oropharynx Soft palate: long Hard palate: normal Uvula visualization: 50% Mallampati Class II Tongue: enlarged in size with teeth mendoza on lateral edges Tonsils: absent bilaterally Neck: normal w/o lymphadenopathy or thyromegaly Heart: regular rate and rhythm Lungs: clear bilaterally Impression and Plan 1. Obstructive Sleep Apnea-Hypopnea Syndrome, unknown, with good treatment compliance and good apnea control. On CPAP therapy, the patient has better sleep quality and is more rested overall. Patient has been on CPAP for over 10 years. He is having breakthrough symptoms of sleepiness during the day, waking up feeling unrefreshed but his says he is not snoring when using his CPAP. I checked his compliance and therapy report which shows good compliance and significant improvement of his sleep apnea. I do not have a copy of his last sleep study, but since it is at least 10 years or more since his last sleep study I am going to order another study to get a new baseline. I will also try to get a copy of his last sleep study for comparison. I will follow-up in the office with the patient after he has completed the sleep study. Patient's apnea severity and rationale for treatment to reduce apnea, improve sleep quality and reduce cardiovascular and cerebrovascular events was reviewed. I also reviewed the benefit of consistent device use of CPAP for hypertension, gastric reflux, depression and anxiety. 2. Obesity, unspecified. Currently patients BMI is 44.5. Obesity increases the risk of apnea, CPAP pressure requirements and overall health risks especially cardiovascular and diabetes. Thus patient is advised to lose weight. Weight loss can be done with reducing portion size, reducing refined foods and balancing content with vegetables, fruit and whole grain foods. In addition, patient encouraged to get regular exercise. The patient's CPAP pressure range should accommodate some weight loss. Symptoms to report for additional pressure adjustment discussed. * Schedule polysomnography to verify diagnosis and severity * Try to obtain copy of last sleep study for comparison * Continue Auto CPAP pressure at 4-20 cmH2O * Avoid long distance driving or driving when feeling sleepy. * Avoid alcohol, sedative and muscle relaxant around bedtime. * Attempt to lose weight. * Review instructions provided by trained office staff on how to prepare for the sleep study. * Return for follow-up after sleep study completed. Counseling Topics: Spare mask, Weight loss health impact Visit Type: In Office Time Spent with Patient (minutes): 35 Provider Statement: I spent 100% of the Face to Face Visit with the patient with greater than 50% spent counseling the patient and coordination of care.
[2022-09-09 00:26] VITALS: BP 138/76
== END 2022-09-08 15:57 | disposition home or self-care (01) ==
LOC: SC 15:56
PROVIDERS: ATTEND Nurse Practitioner Family
DX: G47.33 Obstructive sleep apnea (adult) (pediatric) (principal); E66.01 Morbid (severe) obesity due to excess calories; Z68.41 Body mass index [BMI] 40.0-44.9, adult
CPT/HCPCS: 99203; 99212

== ENCOUNTER 2022-09-28 20:46 | Outpatient (CLI) | payer OTHER | END 2022-09-28 20:47 | disposition home or self-care (01) | LOC: SC 20:46 | PROVIDERS: ATTEND Nurse Practitioner Family | DX: G47.33 Obstructive sleep apnea (adult) (pediatric) (principal) | CPT/HCPCS: 95810 ==

== ENCOUNTER 2022-10-28 14:08 | Outpatient (CLI) | payer OTHER ==
[2022-10-28 14:00] VITALS: BP 113/76
--- NOTE | 2022-10-28 14:00 | SLEEP CARE CONSULTATION ---
Information from patient questionnaire entered by Collette Zazueta. I have reviewed and concur with the information entered by Collette Zazueta. This document represents the service I personally performed and the decisions made by , Charline Gould ARNP. History of Present Illness Service Date and Time: 10/28/2022 1320 Initial [place] Sleepiness Scale score: 5 (09/05/2022) Current [place] Sleepiness Scale score: 6 (10/28/22) Additional HPI information: FRIEDA BOUCHER returns via video telehealth visit for follow up and results of the recently performed polysomnography. I explained the pathophysiology behind obstructive sleep apnea. Patient has been on a CPAP for many years. This current PSG verifies that he has very severe obstructive sleep apnea and he should continue CPAP therapy. The patient will change nasal autoCPAP set to 13-16 cmH20. Patient counseled not drink alcohol less than 4 hours before bedtime as it can increase snoring and apnea. Patient was cautioned about risks of drowsy driving until sleepiness symptoms resolve. Patient denies drowsy driving. Sleep Study - Results Type of Sleep Study: Polysomnography (COMPLTED 09/28/22) Prior sleep studies: Yes (10 years ago [facility] ) Year and Where: 2003 [facility] Polysomnography/Home Sleep Study results: IMPRESSION: The quality of the study is good. The patient had reduced sleep efficiency. The sleep architecture was abnormal for sleep fragmentation and lack of REM sleep. Respiratory monitoring showed severe obstructive sleep apnea-hypopnea (AHI = 79.4) associated with frequent arousals, oxyhemoglobin desaturation and moderate hypoxia (zak oxygen saturation of 78%). The patient did not sleep supine during this study (supine AHI = 0.0; non-supine = 79.42). Snore was moderate to loud in intensity. There was no significant periodic leg movement of sleep. Cardiac rhythm was normal sinus rhythm without significant arrhythmia. No abnormal behavior (parasomnia) observed during the night. Allergies and Home Medications Drug allergies reviewed: Yes (NKDA) Home medication list reviewed: Yes (updated in EMR) Review of Systems Review of systems same as previous: No (Long Covid) Physical Exam Vital signs obtained and entered by: COLLETTE Coffman MA Blood Pressure: 113/76 (PER PT) Heart Rate: 76 (PER PT) Height: 5 ft 10 in (PER PT) Weight: 314 lb 9.6 oz (PER PT) Body Mass Index: 45.1 BMI Classification: Morbidly Obese Impression and Plan 1. Obstructive Sleep Apnea-Hypopnea Syndrome, very severe. Patient has been on CPAP therapy for a long time. His polysomnography report shows that he has very severe obstructive sleep apnea with an AHI of 79.4. His zak oxygen saturation was 78% with a low normal oxygen saturation of 89% and 164.7 minutes spent less than 89% during the night of his study. Patient has an old Kari machine that needs to be updated. I will write a prescription for a new device. He states he has to tighten his mask on very hard for her to not leak and this leads mendoza on his face. I suggested he had a mask fitting for other fullface mask which might be more comfortable and leads less mendoza on his face. He agreed with this suggestion. I will add this to his prescription. I informed him that he will need to follow-up a month after he gets his new CPAP machine and he will call when he gets the new one to set up that appointment. I will also adjust his pressure to 13-16 cm H2O. At his last appointment his meeting average was 12.9 and average 90% pressure was 15.5 cm H2O. The maximum was 17.0 cm H2O. Patient's apnea severity and rationale for treatment to reduce apnea, improve sleep quality and reduce cardiovascular and cerebrovascular events was reviewed. I also reviewed the benefit of consistent device use of CPAP for hypertension, depression, anxiety and fibromyalgia. 2. Obesity, unspecified. Currently patients BMI is 45.1. Obesity increases the risk of apnea, CPAP pressure requirements and overall health risks especially cardiovascular and diabetes. Thus patient is advised to lose weight. * Change auto CPAP pressure to 13-16 cmH2O * Notify me if snoring with mask or feeling that the pressure is too much or too little * Attempt to lose weight * Call this office if any problems using CPAP * Return for follow up one month after obtaining new device, or sooner if concerns arise Counseling Topics: Weight loss health impact Visit Type: Telehealth Video Video Type: Doximity Patient Location: Home Location of Provider: Office Patient agrees and consents to this telehealth visit type: Yes Patient agrees to have their insurance billed: Yes Time Spent with Patient (minutes): 25 Provider Statement: I spent 100% of the Telehealth Video Call with the patient with greater than 50% spent counseling the patient and coordination of care.
== END 2022-10-28 14:09 | disposition home or self-care (01) ==
LOC: SC 14:08
PROVIDERS: ATTEND Nurse Practitioner Family
DX: G47.33 Obstructive sleep apnea (adult) (pediatric) (principal); E66.01 Morbid (severe) obesity due to excess calories; Z68.42 Body mass index [BMI] 45.0-49.9, adult

== ENCOUNTER 2023-01-15 15:00 | Outpatient (CLI) | payer MEDICARE, OTHER | END 2023-01-15 15:15 | disposition home or self-care (01) | LOC: LAB.N 15:00 | PROVIDERS: ATTEND Family Medicine | DX: U09.9 Post COVID-19 condition, unspecified (principal) ==

== ENCOUNTER 2023-01-22 13:18 | Outpatient (CLI) | payer MEDICARE, OTHER ==
--- NOTE | 2023-01-22 15:17 | CT Report ---
PROCEDURE: SINUS SCREENING WO INDICATIONS: FACIAL PAIN, PANSINUSITIS TECHNIQUE: Noncontrast 3.0 mm axial images acquired from the frontal sinuses to the mid-sella, with coronal and sagittal reformats. For radiation dose reduction, the following was used: automated exposure control , adjustment of mA and/or kV according to patient size. COMPARISON: None. FINDINGS: Image quality: Excellent. Sinuses: There is very minimal maxillary frontal and ethmoid mucosal thickening. No mucous retention cysts or polyps. No fluid levels. Ostiomeatal Complexes: Ostiomeatal complexes are patent. Miscellaneous: Visualized intra-orbital contents are normal. No neeru bullosa. Minimal leftward n crystal septal deviation. There is a paradoxical right middle turbinate. There is asymmetric hypertrop hy of the right middle and inferior turbinates. IMPRESSION: Very minimal scattered mucosal thickening without fluid levels and ostiomeatal complexes are patent. Reviewed by: Allie Tran MD on 01/22/2023 3:15 PM PDT Approved by: Allie Tran MD on 01/22/2023 3:15 PM PDT Station ID: [id number]
== END 2023-01-22 13:19 | disposition home or self-care (01) ==
LOC: DI 13:18
PROVIDERS: ATTEND Otolaryngology
DX: R51.9 Headache, unspecified (principal); J32.4 Chronic pansinusitis

== ENCOUNTER 2023-02-02 16:15 | Outpatient (CLI) | payer MEDICARE, OTHER ==
[2023-02-02 16:51] VITALS: BP 138/72
--- NOTE | 2023-02-02 16:51 | SLEEP CARE CONSULTATION ---
Information from patient questionnaire entered by Denny Zazueta. I have reviewed and concur with the information entered by Denny Zazueta. This document represents the service I personally performed and the decisions made by me, Charline Gould ARNP. History of Present Illness Service Date and Time: 02/02/2023 1615 Previous diagnosis: Very Severe, Obstructive Sleep Apnea-Hypopnea Syndrome AHI: 79.4 (in 2021) Reason for follow up: first compliance (SET UP 12/11/22) Equipment type: CPAP (RESMED Airsense 11, s/u 11/2022; SD CARD NEEDED FOR DOWNOAD AND PRESSURE CHANGES) Equipment obtained from: Other ([place]) Mask style: Full face Mask brand: Resmed (Airfit F20) Backup mask available: Yes (old ones) Prior sleep studies: Yes (10 years ago [facility] ) Year and Where: 2003 [facility] Type of Sleep Study: Polysomnography (COMPLTED 09/28/22) HPI additional information: FRIEDA BOUCHER was diagnosed to have very severe, AHI 79.4, obstructive sleep apnea-hypopnea syndrome and returned today for CPAP therapy first compliance follow-up. Sleep Study - Results Type of Sleep Study: Polysomnography (COMPLTED 09/28/22) Prior sleep studies: Yes (10 years ago [facility] ) Year and Where: 2003 [facility] CPAP Compliance Data - Data Reviewed with Patient Average duration of nightly device use: 8 hours 46 minutes Compliance rate %: 100 (30/30 days used) Current pressure setting (cmH2O): 13-16 Average residual AHI: 2.6 Obstructive apnea: 0.1 Hypopnea: 2.4 Subjective Patient concerns: reports: mask discomfort (lines on face from tightening mask in the morning "only"), air blowing in eyes, mask leak noise, dry mouth, nose, throat, other (headaches - has chronic headaches). denies: aerophagia, condensation in mask/hose, nasal congestion, epistaxis Observed to snore while using device: Yes ( says it is better) Current pressure setting perceived as: comfortable On therapy, patient: reports: sleeping better. denies: drowsiness while driving Initial [place] Sleepiness Scale score: 5 (09/05/2022) Current [place] Sleepiness Scale score: 4 (03/28/23) Allergies and Home Medications Known drug allergies: No Drug allergies reviewed: Yes Home medication list reviewed: Yes (no changes) Review of Systems Review of systems same as previous: No (ear and sinus infection) Physical Exam Vital signs obtained and entered by: DENNY Coffman MA Blood Pressure: 138/72 (LEFT ARM) Cuff size: regular Heart Rate: 72 O2 Saturation: 94 Height: 5 ft 10 in (PER PT) Weight: 322 lb 9.6 oz Body Mass Index: 46.3 BMI Classification: Morbidly Obese Impression and Plan 1. Obstructive Sleep Apnea-Hypopnea Syndrome, very severe, with good treatment compliance and good apnea control. On CPAP therapy, the patient has better sleep quality but he is always waking up tired. He feels his fatigue is related to long covid. He has significant improvement of his sleep apnea and is satisfied w ith current CPAP therapy. He complains about air pressure elevated in the legal entity controller that will wake him up with mask leaking and air in his eyes. He has to "cinch down" his mask and is getting mendoza on his face. He likes the pressure otherwise. I will adjust his pressure to 13-15 cmH2O to reduce mask air leaks at the end of the night but still control his sleep apnea. He voiced understanding and agreement with plan of care. Patient's apnea severity and rationale for treatment to reduce apnea, improve sleep quality and reduce cardiovascular and cerebrovascular events was reviewed. I also reviewed the benefit of consistent device use of CPAP for hypertension, depression, anxiety and fibromyalgia. 2. Obesity, unspecified. Currently patients BMI is 46.3. Obesity increases the risk of apnea, CPAP pressure requirements and overall health risks especially cardiovascular and diabetes. Thus patient is advised to lose weight. * Change auto CPAP pressure to 13-15 cmH2O * Notify me if snoring with mask or feeling that the pressure is too much or too little * Attempt to lose weight * Call this office if any problems using CPAP * Return for follow up in 3 months, or sooner if concerns arise Counseling Topics: Spare mask, Weight loss health impact Visit Type: In Office Time Spent with Patient (minutes): 21 Provider Statement: I spent 100% of the Face to Face Visit with the patient with greater than 50% spent counseling the patient and coordination of care.
== END 2023-02-02 16:16 | disposition home or self-care (01) ==
LOC: SC 16:15
PROVIDERS: ATTEND Nurse Practitioner Family
DX: G47.33 Obstructive sleep apnea (adult) (pediatric) (principal); E66.01 Morbid (severe) obesity due to excess calories; Z68.42 Body mass index [BMI] 45.0-49.9, adult
CPT/HCPCS: 99213; G0463; 99212

== ENCOUNTER 2023-05-04 16:02 | Outpatient (CLI) | payer MEDICARE, OTHER ==
--- NOTE | 2023-05-04 16:55 | SLEEP CARE CONSULTATION ---
Information from patient questionnaire entered by Collette Zazueta. I have reviewed and concur with the information entered by Collette Zazueta. This document represents the service I personally performed and the decisions made by , Charline Gould ARNP. History of Present Illness Service Date and Time: 05/04/2023 1602 Previous diagnosis: Very Severe, Obstructive Sleep Apnea-Hypopnea Syndrome AHI: 79.4 (in 2021) Reason for follow up: three month (3 MONTH F/U) Equipment type: CPAP (RESMED Airsense 11, s/u 11/2022; SD CARD NEEDED FOR DOWNOAD AND PRESSURE CHANGES) Equipment obtained from: Other ([place]) Mask style: Full face Mask brand: Resmed (AirFit F20) Prior sleep studies: Yes (10 years ago [facility] ) Year and Where: 2003 [facility] Type of Sleep Study: Polysomnography (COMPLTED 09/28/22) HPI additional information: FRIEDA BOUCHER was diagnosed to have very severe, AHI 79.4, obstructive sleep apnea-hypopnea syndrome and returned today for CPAP therapy three month follow- up. Sleep Study - Results Type of Sleep Study: Polysomnography (COMPLTED 09/28/22) Prior sleep studies: Yes (10 years ago [facility] ) Year and Where: 2003 [facility] CPAP Compliance Data - Data Reviewed with Patient Average duration of nightly device use: 8 hours 26 minutes Compliance rate %: 98 (90/90 days used) Current pressure setting (cmH2O): 13-15 Average residual AHI: 3.2 Central apnea: 0.1 Obstructive apnea: 0.1 Hypopnea: 3.0 Average large leak: 1.3 L/min Subjective Patient concerns: reports: mask discomfort, mask leak noise, other (strap on headgear hurting his neck in the back). denies: aerophagia, air blowing in eyes, condensation in mask/hose, nasal congestion, dry mouth, nose, throat, epistaxis Observed to snore while using device: No Current pressure setting perceived as: comfortable On therapy, patient: reports: sleeping better, awakening more refreshed, being more awake and alert during the day, more rested overall. denies: drowsiness while driving Initial [place] Sleepiness Scale score: 5 (09/05/2022) Current [place] Sleepiness Scale score: 5 (05/04/23) Allergies and Home Medications Known drug allergies: No Drug allergies reviewed: Yes Home medication list reviewed: Yes (no changes) Allergy and home medication list: Allergies No Known Drug Allergies Allergy (Verified 05/03/23 16:39) Review of Systems Review of systems same as previous: Yes (no changes) Physical Exam Vital signs obtained and entered by: COLLETTE Coffman MA Blood Pressure: 142/98 (LEFT ARM) Cuff size: long Heart Rate: 69 O2 Saturation: 93 Height: 5 ft 10 in (PER PT) Weight: 326 lb 9.6 oz Body Mass Index: 46.8 BMI Classification: Morbidly Obese Impression and Plan 1. Obstructive Sleep Apnea-Hypopnea Syndrome, very severe, with good treatment compliance and good apnea control. On CPAP therapy, the patient has better sleep quality and is more rested overall. Patient states he is doing okay with his CPAP but the headgear is really tight on the back of his neck. He has neck injuries, issues and this is causing pain. He is using 3 washcloths to cushion the back of his neck from the straps. I fitted him to a Eric full face mask with medium cushion with good seal/fit. He thought that it did not put pressure on his neck like the other mask. I sent a sample home with him to try and he can order more it works out for him. Patient's apnea severity and rationale for treatment to reduce apnea, improve sleep quality and reduce cardiovascular and cerebrovascular events was reviewed. I also reviewed the benefit of consistent device use of CPAP for hypertension, depression, anxiety and fibromyalgia. 2. Obesity, unspecified. Currently patients BMI is 46.8. Obesity increases the risk of apnea, CPAP pressure requirements and overall health risks especially cardiovascular and diabetes. Thus patient is advised to lose weight. * Continue auto CPAP pressure at 13-15 cmH2O * Notify me if snoring with mask or feeling that the pressure is too much or too little * Attempt to lose weight * Call this office if any problems using CPAP * Return for follow up in 1 year, or sooner if concerns arise Mask provided: Yes Counseling Topics: Spare mask, Weight loss health impact Visit Type: In Office Time Spent with Patient (minutes): 29 Provider Statement: I spent 100% of the Face to Face Visit with the patient with greater than 50% spent counseling the patient and coordination of care.
[2023-05-04 16:57] VITALS: BP 142/98
== END 2023-05-04 16:03 | disposition home or self-care (01) ==
LOC: SC 16:02
PROVIDERS: ATTEND Nurse Practitioner Family
DX: G47.33 Obstructive sleep apnea (adult) (pediatric) (principal); E66.01 Morbid (severe) obesity due to excess calories; Z68.42 Body mass index [BMI] 45.0-49.9, adult
CPT/HCPCS: 99213; G0463; 99212

== ENCOUNTER 2023-05-19 08:00 | Outpatient (CLI) | payer OTHER | END 2023-05-19 23:59 | disposition home or self-care (01) | LOC: LAB.N 08:00 | PROVIDERS: ATTEND Registered Nurse | DX: J06.9 Acute upper respiratory infection, unspecified (principal); Z20.822 Contact with and (suspected) exposure to COVID-19 ==

== ENCOUNTER 2023-05-24 15:19 | Outpatient (CLI) | payer MEDICARE, OTHER | END 2023-05-24 15:20 | disposition home or self-care (01) | LOC: CAM 15:19 | PROVIDERS: ATTEND Registered Nurse | DX: R51.9 Headache, unspecified (principal) | CPT/HCPCS: 97810; 97811 ==

== ENCOUNTER 2023-05-31 14:31 | Outpatient (CLI) | payer OTHER | END 2023-05-31 14:32 | disposition home or self-care (01) | LOC: CAM 14:31 | PROVIDERS: ATTEND Registered Nurse | DX: R51.9 Headache, unspecified (principal) | CPT/HCPCS: 97813; 97814 ==

== ENCOUNTER 2023-06-07 14:26 | Outpatient (CLI) | payer OTHER | END 2023-06-07 14:27 | disposition home or self-care (01) | LOC: CAM 14:26 | PROVIDERS: ATTEND Registered Nurse | DX: R51.9 Headache, unspecified (principal) | CPT/HCPCS: 97810; 97811 ==

== ENCOUNTER 2023-07-19 14:35 | Outpatient (CLI) | payer OTHER | END 2023-07-19 14:36 | disposition home or self-care (01) | LOC: CAM 14:35 | PROVIDERS: ATTEND Registered Nurse | DX: R51.9 Headache, unspecified (principal) | CPT/HCPCS: 97810; 97811 ==

== ENCOUNTER 2023-09-23 12:29 | Outpatient (CLI) | payer OTHER | END 2023-09-23 12:30 | disposition home or self-care (01) | LOC: DI 12:29 | PROVIDERS: ATTEND Family Medicine | DX: R06.09 Other forms of dyspnea (principal); E66.01 Morbid (severe) obesity due to excess calories; I51.7 Cardiomegaly; I77.810 Thoracic aortic ectasia | CPT/HCPCS: 93306 ==

== ENCOUNTER 2023-12-07 08:00 | Outpatient (CLI) | payer OTHER ==
--- NOTE | 2023-12-07 15:56 | XRAY Report ---
PROCEDURE: Knee 4 View BILAT INDICATIONS: BILAT KNEE PAIN TECHNIQUE: 5 views of the knee(s) were acquired. COMPARISON: None. FINDINGS: Bones: No fractures or dislocations. Moderate degenerative changes of the bilateral knees with mild tricompartmental osteophytosis and moderate medial joint space narrowing bilaterally. No suspicious b lai lesions. Soft tissues: No knee joint effusion. No suspicious soft tissue calcifications or masses. IMPRESSION: No acute bony abnormality. 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 Reviewed by: Yemi Yang MD on 12/07/2023 3:55 PM PST Approved by: Yemi Yang MD on 12/07/2023 3:55 PM PST Station ID: [id number]
== END 2023-12-07 23:59 | disposition home or self-care (01) ==
LOC: DI.WOS 08:00
PROVIDERS: ATTEND Physician Assistant Surgical
DX: M17.0 Bilateral primary osteoarthritis of knee (principal)

== ENCOUNTER 2023-12-27 13:10 | Outpatient (CLI) | payer OTHER | END 2023-12-27 13:11 | disposition home or self-care (01) | LOC: CAM 13:10 | PROVIDERS: ATTEND Registered Nurse | DX: R51.9 Headache, unspecified (principal) | CPT/HCPCS: 97810; 97811 ==

== ENCOUNTER 2024-01-10 13:12 | Outpatient (CLI) | payer OTHER | END 2024-01-10 13:13 | disposition home or self-care (01) | LOC: CAM 13:12 | PROVIDERS: ATTEND Registered Nurse | DX: R51.9 Headache, unspecified (principal) | CPT/HCPCS: 97810; 97811 ==

== ENCOUNTER 2024-01-17 13:15 | Outpatient (CLI) | payer OTHER | END 2024-01-17 13:16 | disposition home or self-care (01) | LOC: CAM 13:15 | PROVIDERS: ATTEND Registered Nurse | DX: R51.9 Headache, unspecified (principal) | CPT/HCPCS: 97813; 97814 ==

== ENCOUNTER 2024-01-24 13:12 | Outpatient (CLI) | payer OTHER | END 2024-01-24 13:13 | disposition home or self-care (01) | LOC: CAM 13:12 | PROVIDERS: ATTEND Registered Nurse | DX: R51.9 Headache, unspecified (principal) | CPT/HCPCS: 97813; 97814 ==

== ENCOUNTER 2024-01-31 13:13 | Outpatient (CLI) | payer OTHER | END 2024-01-31 13:14 | disposition home or self-care (01) | LOC: CAM 13:13 | PROVIDERS: ATTEND Registered Nurse | DX: R51.9 Headache, unspecified (principal) | CPT/HCPCS: 97813; 97814 ==

== ENCOUNTER 2024-02-07 13:14 | Outpatient (CLI) | payer OTHER | END 2024-02-07 13:15 | disposition home or self-care (01) | LOC: CAM 13:14 | PROVIDERS: ATTEND Registered Nurse | DX: R51.9 Headache, unspecified (principal) | CPT/HCPCS: 97810; 97811 ==

== ENCOUNTER 2024-02-14 14:35 | Outpatient (CLI) | payer OTHER | END 2024-02-14 14:36 | disposition home or self-care (01) | LOC: CAM 14:35 | PROVIDERS: ATTEND Registered Nurse | DX: R51.9 Headache, unspecified (principal) | CPT/HCPCS: 97813; 97814 ==

== ENCOUNTER 2024-02-21 13:11 | Outpatient (CLI) | payer OTHER | END 2024-02-21 13:12 | disposition home or self-care (01) | LOC: CAM 13:11 | PROVIDERS: ATTEND Registered Nurse | DX: R51.9 Headache, unspecified (principal) | CPT/HCPCS: 97813; 97814 ==

== ENCOUNTER 2024-05-12 19:20 | Emergency (ER) | payer OTHER ==
[2024-05-12 20:17] LABS: BASOPHILS # (AUTO) 0.1 10^3/uL (0.0-0.1); BASOPHILS % (AUTO) 0.7 %; EOSINOPHILS # (AUTO) 0.3 10^3/uL (0.0-0.7); EOSINOPHILS % (AUTO) 2.8 %; HCT - HEMATOCRIT 43.7 % (42.0-52.0); HGB - HEMOGLOBIN 14.1 g/dL (14.0-18.0); LYMPHOCYTES # (AUTO) 2.1 10^3/uL (1.5-3.5); LYMPHOCYTES % (AUTO) 22.9 %; MEAN CORPUSCULAR HEMOGLOBIN 29.1 pg (27.0-31.0); MEAN CORPUSCULAR HGB CONC 32.3 g/dL (32.0-36.0); MEAN CORPUSCULAR VOLUME 90.3 fL (80.0-94.0); MONOCYTES # (AUTO) 0.9 10^3/uL (0.0-1.0); MONOCYTES % (AUTO) 9.6 %; NEUTROPHILS # (AUTO) 5.7 10^3/uL (1.5-6.6); NEUTROPHILS % (AUTO) 63.7 %; PLT - PLATELET COUNT 260 10^3/uL (130-450); RED BLOOD COUNT 4.84 10^6/uL (4.70-6.10); RED CELL DISTRIBUTION WIDTH 12.9 % (12.0-15.0)
[2024-05-12] MEDS: SODIUM CHLORIDE 0.9% 1,000 ML IV STA ×2 (20:24→21:08)
[2024-05-12 20:34] LABS: ALBUMIN 4.4 g/dL (3.2-5.5); ALBUMIN/GLOBULIN RATIO 1.8 (1.0-2.2); BILIRUBIN,TOTAL 0.6 mg/dL (0.2-1.0); CALCIUM 9.8 mg/dL (8.5-10.3); CREATININE 0.8 mg/dL (0.6-1.3); POTASSIUM 3.3 mmol/L (3.5-4.5); TOTAL PROTEIN 6.9 g/dL (6.4-8.9)
[2024-05-12 20:39] LABS: TROPONIN I HIGH SENSITIVITY 5.6 ng/L (2.3-19.7)
--- NOTE | 2024-05-12 20:40 | ED Physician Documentation ---
History of Present Illness - Stated complaint Stated Complaint: DIZZY/ESCAMILLA/FATIGUE - Chief complaint Chief Complaint: Neuro - History obtained from History obtained from: Patient - Additonal information Additional information: 68-year-old man with past medical history of high blood pressure on isosorbide mononitrate, chlorthalidone, with history of chronic lightheadedness that is often positional, presents with an episode of lightheadedness today around 751 when he woke up from a nap. His symptoms have now improved. Patient states that for a couple of moments upon waking the digital clock images seem to be waving [id number]. He denies further vision changes after this initial episode immediately after waking. denies weakness or other fnd PD PAST MEDICAL HISTORY - Past Medical History Cardiovascular: Hypertension, High cholesterol, Coronary artery disease Respiratory: Sleep apnea, CPAP use Neuro: Head injury, Headaches Endocrine/Autoimmune: Other GI: GERD, Colon polyps, Other : Frequency, Other HEENT: Chronic vision loss, Chronic sinusitis, Chronic hearing loss, Other Psych: Depression, Anxiety, Panic attacks, Post traumatic stress disorder, Other Musculoskeletal: Osteoarthritis, Chronic back pain, Other Derm: Eczema, Psoriasis, Rosacea - Past Surgical History Past Surgical History: Yes General: Colonoscopy, EGD Ortho: Other HEENT: Other - Present Medications Home Medications: Ambulatory Orders Medication Instructions Recorded Confirmed Atorvastatin [Lipitor] 20 mg PO DAILY 01/15/21 05/12/24 Chlorthalidone 25 mg PO DAILY 01/15/21 05/12/24 Cholecalciferol [Vitamin D3] 50 mcg PO DAILY 01/15/21 05/12/24 Gabapentin [Neurontin] 600 mg PO BID 01/15/21 05/04/23 Meloxicam [Mobic] 15 mg PO DAILY 01/15/21 05/12/24 [place]-3/Dha/Epa/Fish Oil [Fish Oil 1 each PO DAILY 01/15/21 05/12/24 1,000 mg Softgel] Psyllium [Metamucil] 1 each PO DAILY 01/15/21 05/12/24 Simethicone [Mylicon] 80 mg PO BID PRN 01/15/21 05/12/24 Zinc Gluconate [Zinc] 50 mg PO DAILY 01/15/21 05/12/24 methocarbamoL [Methocarbamol] 1 - 2 tab PO QID PRN 01/15/21 05/12/24 Docusate Sodium [Dss] 250 mg PO DAILY 06/14/21 05/12/24 Cetirizine [ZyrTEC] 10 mg PO DAILY PRN 01/23/22 05/12/24 hydrOXYzine HCL [Hydroxyzine HCl] 25 mg PO PRN PRN 01/23/22 05/12/24 diazePAM [Valium] 5 - 10 mg PO TID PRN #15 tablet 01/24/22 05/04/23 Acetaminophen [Tylenol] See Rx Instructions .ROUTE .COMPLEX 10/28/22 05/12/24 Aspirin [Aspirin EC] 81 mg PO DAILY 10/28/22 05/12/24 Atenolol [Tenormin] See Rx Instructions .ROUTE .COMPLEX 10/28/22 05/12/24 Cinnamon Bark Xt/Chromium/B7 See Rx Instructions .ROUTE .COMPLEX 10/28/22 05/12/24 [Vaccdaut-Sphgdkgv-Hqvdzp Tab] Glucos Sul 2Kcl/MSM/Chond/C/Mn See Rx Instructions .ROUTE .COMPLEX 10/28/22 05/12/24 [Glucosamine Chondroitin Cap] Isosorbide Dinitrate 15 mg PO BID 10/28/22 05/12/24 Magnesium See Rx Instructions .ROUTE .COMPLEX 10/28/22 05/12/24 Omeprazole See Rx Instructions .ROUTE .COMPLEX 10/28/22 05/12/24 Turmeric See Rx Instructions .ROUTE .COMPLEX 10/28/22 05/12/24 - Allergies Allergies/Adverse Reactions: Allergies Allergy/AdvReac Type Severity Reaction Status Date / Time No Known Drug Allergies Allergy Verified 05/12/24 19:48 - Social History Does the pt smoke?: No Smoking Status: Never smoker Does the pt drink ETOH?: Yes Does the pt have substance abuse?: Yes - Immunizations Immunizations are current?: Yes - POLST Patient has POLST: No POLST Status: Full Code PD ED PE NORMAL - Vitals Vital signs reviewed: Yes - General General: Alert and oriented X 3, No acute distress, Well developed/nourished - HEENT HEENT: Atraumatic, PERRL, EOMI, Moist mucous membranes, Pharynx benign - Neck Neck: Supple, no meningeal sign - Cardiac Cardiac: RRR - Respiratory Respiratory: No respiratory distress, Clear bilaterally - Abdomen Abdomen: Non tender, Non distended - Derm Derm: Normal color, Warm and dry - Extremities Extremities: No deformity - Neuro Neuro: Alert and oriented X 3, yard jacker 2-12 intact, No motor deficit, No sensory deficit, Normal speech, Other (normal cerebellar testing, strength and gait) Eye Opening: Spontaneous Motor: Obeys Commands Verbal: Oriented GCS Score: 15 Results - Vitals Vitals: Vital Signs - 24 hr 05/12/24 05/12/24 19:48 21:00 Temperature 36.4 C L Heart Rate 77 70 Respiratory 19 16 Rate Blood Pressure 127/54 L 126/64 O2 Saturation 94 99 Oxygen O2 Source Room air - EKG (time done) 2027 EKG releavant findings:: EKG personally interpreted by author of this note. Relevant findings are: Rate: Rate (enter#) (73) Rhythm: NSR Epworth: LAD (borderline) Intervals: Normal LA QRS: Normal Ischemia: Normal ST segments - Labs Labs: Laboratory Tests 05/12/24 05/12/24 20:13 20:13 WBC 9.0 RBC 4.84 Hgb 14.1 Hct 43.7 MCV 90.3 MCH 29.1 MCHC 32.3 RDW 12.9 Plt Count 260 MPV 10.0 Neut # (Auto) 5.7 Lymph # (Auto) 2.1 Jerome # (Auto) 0.9 Eos # (Auto) 0.3 Baso # (Auto) 0.1 Absolute Nucleated RBC 0.00 Nucleated RBC % 0.0 Sodium 139 Potassium 3.3 L Chloride 104 Carbon Dioxide 28 Anion Gap 7.0 BUN 29 H Creatinine 0.8 Estimated GFR (MDRD) 97 Glucose 130 H Calcium 9.8 Total Bilirubin 0.6 AST 19 ALT 26 Alkaline Phosphatase 54 Troponin I High Sens 5.6 Total Protein 6.9 Albumin 4.4 Globulin 2.5 Albumin/Globulin Ratio 1.8 Lipase 23 PD Medical Decision Making - ED course ED course: 68-year-old man presents with lightheaded episode, found to have elevated BUN/creatinine ratio on lab work concerning for possible dehydration in the setting of chlorthalidone. Liter of IV fluids provided. Patient is asymptomatic in the ED. EKG, chest x-ray and lab work otherwise benign. Plan to follow-up outpatient with his primary care provider. return precautions given. Departure - Departure Disposition: 01 Home, Self Care Clinical Impression: Lightheadedness Condition: Stable Instructions: ED Dizziness [facility]O Comments: You were seen in the emergency department for dizziness. Your workup indicated possible dehydration. Make sure you drink 6-8 servings of water daily. Please follow-up with your primary care provider and return to the emergency department if you have any new or worsening symptoms or other concerns. Forms: PCP List
[2024-05-12 21:13] VITALS: O2SAT 99
--- NOTE | 2024-05-12 21:22 | XRAY Report ---
PROCEDURE: Chest 1V INDICATIONS: Chest Pain TECHNIQUE: One view of the chest was acquired. COMPARISON: 04/15/2022 FINDINGS: Surgical changes and devices: None. Lungs and pleura: No pleural effusions or pneumothorax. Lungs are clear. Mediastinum: Mediastinal contours appear normal. Heart size is normal. Bones and chest wall: No suspicious bony lesions. Overlying soft tissues appear unremarkable. IMPRESSION: No acute cardiopulmonary process. Reviewed by: Beth Crenshaw MD on 05/12/2024 9:21 PM PDT Approved by: Beth Crenshaw MD on 05/12/2024 9:21 PM PDT Station ID: [id number]
[2024-05-12 21:52] VITALS: BP 121/68
== END 2024-05-12 21:48 | disposition home or self-care (01) ==
LOC: ED 19:20
DX: R42 Dizziness and giddiness (principal); I10 Essential (primary) hypertension; E78.00 Pure hypercholesterolemia, unspecified; I25.10 Atherosclerotic heart disease of native coronary artery without angina pectoris; G47.30 Sleep apnea, unspecified; Z86.010 Personal history of colon polyps; Z79.899 Other long term (current) drug therapy
CPT/HCPCS: 36415; 80053; 83690; 84484; 85025; 93005; 96360; 99284